=== PATIENT | female | born 1955 | race Caucasian/White ===

== ENCOUNTER 2016-03-08 11:52 | Observation (INO) | payer MEDICARE, MEDICAID ==
[2016-03-08] MEDS ORDERED: ASPIRIN 81 MG TABLET, CHEWABLE PO ONE (12:16)
--- NOTE | 2016-03-08 12:16 | ER Document Report ---
ED Medical Screen (RME) - General Stated Complaint: DIFFICULT BREATHING Mode of Arrival: Ambulatory Information source: Patient - For 1 week patient does smoke TRAVEL OUTSIDE OF THE [place] IN LAST 30 DAYS: No - Related Data Allergies/Adverse Reactions: Penicillins Allergy (Severe, Verified 12/31/13 02:36) throat closes morphine [Morphine] Adverse Reaction (Severe, Verified 12/31/13 02:36) migraine, n/v diphenhydramine HCl [From Benadryl] Adverse Reaction (Intermediate, Verified 09/06 02:36) bladder spasm Gchvzoa-Bvo-Rjx Reductase Inhibitor Adverse Reaction (Intermediate, Verified 09/06 02:36) muscle cramps Past Medical History Psychiatric Medical History: Reports: Hx Depression Past Surgical History: Reports: Hx Breast Surgery - lumpectomy, Hx Hysterectomy - Immunizations Hx Diphtheria, Pertussis, Tetanus Vaccination: Yes Physical Exam - Vital signs Vitals: Temp Pulse Resp BP Pulse Ox 98.1 F 103 H 16 139/72 H 94 03/08/16 12:10 03/08/16 12:10 03/08/16 12:10 03/08/16 12:10 03/08/16 12:10 Course - Vital Signs Vital signs: Temp Pulse Resp BP Pulse Ox 98.1 F 103 H 16 139/72 H 94 03/08/16 12:10 03/08/16 12:10 03/08/16 12:10 03/08/16 12:10 03/08/16 12:10
[2016-03-08 13:10] LABS: ABSOLUTE BASOPHILS # (AUTO) 0.1 10^3/uL (0.0-0.2); ABSOLUTE EOSINOPHILS # (AUTO) 0.1 10^3/uL (0.0-0.6); ABSOLUTE LYMPHOCYTES (AUTO) 1.3 10^3/uL (0.5-4.7); ABSOLUTE MONOCYTES (AUTO) 0.7 10^3/uL (0.1-1.4); ABSOLUTE NEUT (AUTO) 6.3 10^3/uL (1.7-8.2); BASOPHILS % (AUTO) 0.7 % (0-2); EOSINOPHILS % (AUTO) 1.5 % (0-6); HEMATOCRIT 43.1 % (36.0-47.0); HEMOGLOBIN 13.6 g/dL (12.0-15.5); HGB HCT DIFFERENCE -2.3; LYMPHOCYTES % (AUTO) 15.8 % (13-45); MEAN CORPUSCULAR HEMOGLOBIN 27.8 pg (27.0-33.4); MEAN CORPUSCULAR HGB CONC 31.6 g/dL (32.0-36.0); MEAN CORPUSCULAR VOLUME 88 fl (80-97); MONOCYTES % (AUTO) 7.7 % (3-13); RED BLOOD COUNT 4.89 10^6/uL (3.72-5.28); RED CELL DISTRIBUTION WIDTH 15.9 % (11.5-14.0); SEGMENTED NEUTROPHILS % (AUTO) 74.3 % (42-78); WHITE BLOOD COUNT 8.4 10^3/uL (4.0-10.5)
[2016-03-08] MEDS ORDERED: IPRATROPIUM/ALBUTEROL 0.5-2.5 MG/3 ML AMPUL NEB ONE (13:14)
[2016-03-08] MEDS ORDERED: CLONAZEPAM 1 MG TABLET PO ONE (13:15)
[2016-03-08] MEDS ORDERED: PREDNISONE 20 MG TABLET PO ONE (13:15)
--- NOTE | 2016-03-08 13:16 | ER Document Report ---
ED Respiratory Problem - General Chief Complaint: Breathing Difficulty Stated Complaint: DIFFICULT BREATHING Mode of Arrival: Ambulatory Information source: Patient Notes: Patient presents complaining of two-week history of cough. Patient states over the past 5 days her cough has worsened and she developed chest discomfort that she describes as a squeezing sensation around her chest. Patient states yesterday she did measure a fever of 102. Patient reports that occasionally she will gag after coughing. Patient states she's had yellow-green sputum with her cough. Patient denies any recent travel, or bedrest. TRAVEL OUTSIDE OF THE [place] IN LAST 30 DAYS: No - HPI Patient complains to provider of: Chest pain, Cough, Hurts to breath, Short of breath Onset: Other - 2 weeks, worse over the past 5 days Duration: Worse/persistent Initiating Event: URI Quality of pain: Other - Squeezing Context: Hx COPD, Smoker. denies: Recent cardiac event, Recent surgery Chest pain/discomfort: Tightness - Squeezing Cough: Productive Sputum amount: Small Sputum color: Green, Yellow Associated symptoms: Anxiety, Chest pain/discomfort, Cough, Difficulty breathing , Wheezing. denies: Sore Throat, Sweaty Similar symptoms previously: No Recently seen / treated by doctor: No - Related Data Allergies/Adverse Reactions: Penicillins Allergy (Severe, Verified 03/08/16 12:18) throat closes morphine [Morphine] Adverse Reaction (Severe, Verified 03/08/16 12:18) migraine, n/v diphenhydramine HCl [From Benadryl] Adverse Reaction (Intermediate, Verified 12:18) bladder spasm Nbqoqtz-Tvh-Mrk Reductase Inhibitor Adverse Reaction (Intermediate, Verified 12:18) muscle cramps Past Medical History - General Information source: Patient - For 1 week patient does smoke - Social History Smoking Status: Current Every Day Smoker Chew tobacco use (# tins/day): No Frequency of alcohol use: None Drug Abuse: None Occupation: none Lives with: Family Family History: Reviewed & Not Pertinent Patient has suicidal ideation: No Patient has homicidal ideation: No - Past Medical History Cardiac Medical History: Reports: Other - AAA Denies: Hx Hypertension Pulmonary Medical History: Reports: Hx COPD Renal/ Medical History: Denies: Hx Peritoneal Dialysis GI Medical History: Reports: Other - Gastroparesis Musculoskeltal Medical History: Reports Hx Arthritis - Rheumatoid arthritis Psychiatric Medical History: Reports: Hx Depression Past Surgical History: Reports: Hx Breast Surgery - lumpectomy, Hx Hysterectomy - Immunizations Hx Diphtheria, Pertussis, Tetanus Vaccination: Yes Review of Systems - Review of Systems Constitutional: Fever - 102 yesterday, Recent illness - Upper respiratory symptoms EENT: Nose congestion Cardiovascular: Chest pain Respiratory: Cough, Hurts to breathe, Short of breath, Sputum, Wheezing Gastrointestinal: No symptoms reported. denies: Nausea, Vomiting Genitourinary: No symptoms reported Female Genitourinary: No symptoms reported Musculoskeletal: No symptoms reported Skin: No symptoms reported Hematologic/Lymphatic: No symptoms reported Neurological/Psychological: No symptoms reported Physical Exam - Vital signs Vitals: Temp Pulse Resp BP Pulse Ox 98.1 F 103 H 16 139/72 H 94 03/08/16 12:10 03/08/16 12:10 03/08/16 12:10 03/08/16 12:10 03/08/16 12:10 - General General appearance: Appears well, Alert, Anxious In distress: None - HEENT Head: Normocephalic, Atraumatic Eyes: Normal Pupils: PERRL Nasal: Normal Mouth/Lips: Normal Mucous membranes: Normal Neck: Normal, Supple. No: Lymphadenopathy - Respiratory Respiratory status: No respiratory distress Chest status: Pain with cough, Pain with deep breathing Breath sounds: Productive cough, Wheezing Chest palpation: Tender - Cardiovascular Rhythm: Regular Heart sounds: S1 appreciated, S2 appreciated Murmur: No - Abdominal Inspection: Normal Distension: No distension Bowel sounds: Normal Tenderness: Nontender Organomegaly: No organomegaly - Back Back: Normal, Nontender. No: CVA tenderness - Extremities General upper extremity: Normal inspection, Normal strength General lower extremity: Normal inspection, Normal strength - Neurological Neuro grossly intact: Yes Cognition: Normal Orientation: AAOx4 [place] Coma Scale Eye Opening: Spontaneous [place]an Coma Scale Verbal: Oriented [place] Coma Scale Motor: Obeys Commands [place] Coma Scale Total: 15 - Psychological Associated symptoms: Normal affect, Anxious - Skin Skin Temperature: Warm Skin Moisture: Dry Skin Color: Normal Course - Re-evaluation Re-evalutation: 03/08/16 14:[address] Pate regarding patient presentation and exam findings. Reviewed EKG, discussed other diagnostic test results, recommends calling hospitalist for admission given patient's heart score. HEART score 5. 03/08/16 15:20 Repeat EKG performed and reviewed, ST depression seems modestly improved as compared to initial EKG performed today. 03/08/16 15:50 Consulted with hospitalist Davian Howard [employer] regarding patient's presentation, agreed to admit patient to telemetry floor as an observation. Patient will be assigned to Dr. Gonzalez services. - Vital Signs Vital signs: Temp Pulse Resp BP Pulse Ox 98.1 F 103 H 16 139/72 H 94 03/08/16 12:10 03/08/16 12:10 03/08/16 12:10 03/08/16 12:10 03/08/16 12:10 - Laboratory Result Diagrams: 03/08/16 12:30 03/08/16 12:30 Laboratory results interpreted by me: 03/08/16 03/08/16 12:30 12:30 MCHC 31.6 L RDW 15.9 H Potassium 3.4 L BUN 6 L Alkaline Phosphatase 135 H Creatine Kinase 186 H 03/08/16 17:20 Labs- Entire Visit 03/08/16 03/08/16 03/08/16 12:30 12:30 12:30 WBC 8.4 RBC 4.89 Hgb 13.6 Hct 43.1 MCV 88 MCH 27.8 MCHC 31.6 L RDW 15.9 H Plt Count 220 Seg Neutrophils % 74.3 Lymphocytes % 15.8 Monocytes % 7.7 Eosinophils % 1.5 Basophils % 0.7 Absolute Neutrophils 6.3 Absolute Lymphocytes 1.3 Absolute Monocytes 0.7 Absolute Eosinophils 0.1 Absolute Basophils 0.1 Sodium 143.3 Potassium 3.4 L Chloride 104 Carbon Dioxide 25 Anion Gap 14 BUN 6 L Creatinine 0.76 Est GFR ( Amer) > 60 Est GFR (Non-Af Amer) > 60 Glucose 96 Calcium 9.2 Total Bilirubin 0.6 Direct Bilirubin 0.0 AST 22 ALT 23 Alkaline Phosphatase 135 H Creatine Kinase 186 H CK-MB (CK-2) 0.90 Troponin I < 0.012 Total Protein 6.8 Albumin 3.8 Lipase 03/08/16 03/08/16 12:30 15:30 WBC RBC Hgb Hct MCV MCH MCHC RDW Plt Count Seg Neutrophils % Lymphocytes % Monocytes % Eosinophils % Basophils % Absolute Neutrophils Absolute Lymphocytes Absolute Monocytes Absolute Eosinophils Absolute Basophils Sodium Potassium Chloride Carbon Dioxide Anion Gap BUN Creatinine Est GFR ( Amer) Est GFR (Non-Af Amer) Glucose Calcium Total Bilirubin Direct Bilirubin AST ALT Alkaline Phosphatase Creatine Kinase CK-MB (CK-2) Troponin I < 0.012 Total Protein Albumin Lipase 47.9 - Diagnostic Test Radiology reviewed: Reports reviewed - EKG Interpretation by Me EKG shows normal: Sinus rhythm Rate: Tachycardia When compared to previous EKG there are: Changes noted, Other - ST depression in anterior lateral leads Discharge - Discharge Clinical Impression: Tobacco use disorder, Hypokalemia, COPD exacerbation Chest pain Qualifiers: Chest pain type: unspecified Qualified Code(s): R07.9 - Chest pain, unspecified Condition: Stable Disposition: ADMITTED OBSERVATION Admitting Provider: Hospitalist Unit Admitted: Telemetry
[2016-03-08 13:27] LABS: ALANINE AMINOTRANSFERASE 23 U/L (9-52); ALBUMIN 3.8 g/dL (3.5-5.0); ALKALINE PHOSPHATASE 135 U/L (38-126); ANION GAP 14 (5-19); ASPARTATE AMINO TRANSFERASE 22 U/L (14-36); BILIRUBIN,TOTAL 0.6 mg/dL (0.2-1.3); BLOOD UREA NITROGEN 6 mg/dL (7-20); CALCIUM 9.2 mg/dL (8.4-10.2); CARBON DIOXIDE 25 mmol/L (22-30); CHLORIDE 104 mmol/L (98-107); CREATINE KINASE 186 U/L (30-135); CREATININE RESULT 0.76 mg/dL (0.52-1.25); GLUCOSE 96 mg/dL (75-110); POTASSIUM 3.4 mmol/L (3.6-5.0); SODIUM 143.3 mmol/L (137-145); TOTAL PROTEIN 6.8 g/dL (6.3-8.2)
[2016-03-08 13:41] LABS: TROPONIN I < 0.012 ng/mL
[2016-03-08] MEDS ORDERED: NICOTINE 21 MG/24 HR PATCH.TD24 TD ONE (14:38)
[2016-03-08] MEDS ORDERED: POTASSIUM CHLORIDE 10 MEQ TABLET.SA PO ONE (14:48)
--- NOTE | 2016-03-08 15:00 | EKG REPORT ---
SEVERITY:- ABNORMAL ECG - SINUS RHYTHM ST DEPRESSION, CONSIDER ISCHEMIA, ANT-LAT LDS : Confirmed by: Angelia Slater 08-Mar-2016 14:59:01
[2016-03-08] MEDS ORDERED: HYDROCODONE/ACETAMINOPHEN 5-325 MG TABLET PO ONE (15:05)
[2016-03-08] MEDS ORDERED: ALBUTEROL SULFATE 0.083% NEB 2.5 MG/3 ML AMPUL NEB ONE (15:05)
[2016-03-08] MEDS ORDERED: LEVALBUTEROL HCL NEB 0.63 MG/3 ML AMPUL NEB PRN (15:50)
--- NOTE | 2016-03-08 16:48 | EKG REPORT ---
SEVERITY:- OTHERWISE NORMAL ECG - SINUS TACHYCARDIA MINIMAL ST DEPRESSION, ANTEROLATERAL LEADS : Confirmed by: Barbie Medellin MD 08-Mar-2016 16:47:52
[2016-03-08] MEDS: LEVALBUTEROL HCL NEB 1.25 MG/3 ML AMPUL NEB SCH ×2 (16:57→23:54)
--- NOTE | 2016-03-08 17:31 | PDOC H&P ---
History of Present Illness Admission Date/PCP: 03/08/16 16:32 Dr. Hung Patient complains of: Congestion History of Present Illness: YAZAN MCCOY is a 60 year old female with a past medical history of tobacco dependency and fibromyalgia. The patient presented to the emergency department with a two-week history of bronchitis type symptoms. The patient been seen and evaluated by her primary care provider Dr. Hung had been started on Ceftin and Zithromax. The patient presented with chest heaviness and wheezing. Given the patient's chest pain and heaviness the patient was referred to the hospitalist for observation and management. The patient also states that she had an avulsion fracture of her left ankle 2 weeks ago. The patient was seen and was placed in a boot. The patient was told that this should continue to heal however the patient states that her pain is much worse today than it was when she had the fracture. Past Medical History Pulmonary Medical History: Reports: Bronchitis, Chronic Obstructive Pulmonary Disease (COPD) Musculoskeltal Medical History: Reports: Fibromyalgia Psychiatric Medical History: Reports: Depression, Tobacco Dependency Past Surgical History Past Surgical History: Reports: Hysterectomy Social History Information Source: Patient Occupation: Disabled Lives with: Alone Smoking Status: Current Every Day Smoker Cigarettes Packs Per Day: 1 Number of Years Smokin Last Time Smoked: today Frequency of Alcohol Use: None Hx Recreational Drug Use: No Drugs: None Hx Prescription Drug Abuse: No - Advance Directive Resuscitation Status: Full Code Surrogate healthcare decision maker:: Her daughter Joanie Family History Family History: Reviewed & Not Pertinent Parental Family History Reviewed: Yes - mother: from AAA, father: of mesothelioma Children Family History Reviewed: Yes - 1 daughter that committed suicide. 2 daughters Sibling(s) Family History Reviewed.: Yes - 1 brother who committed suicide Medication/Allergy Home Medications: Cetirizine HCl [Zyrtec] 10 mg PO DAILY 12/30/13 Aspirin [Ecotrin 81 mg EC Tablet] 81 mg PO DAILY #30 tabec 01/01/14 Azithromycin [Zithromax 250 mg Tablet] 250 mg PO DAILY #2 tablet 01/01/14 Cefuroxime Axetil [Ceftin 500 mg Tablet] 500 mg PO Q12 #7 tablet 01/01/14 Clonazepam [Klonopin 1 mg Tablet] 1 mg PO TID PRN #20 tablet 01/01/14 Duloxetine HCl [Cymbalta] 60 mg PO DAILY #30 capsule. 01/01/14 Hydrocodone Bit/Acetaminophen [Hydrocodon-Acetaminophn 10-325] 1 each PO QID PRN #20 tablet 01/01/14 Ketorolac Tromethamine 10 mg PO BIDP #10 tablet 01/01/14 [place]-3 Fatty Acids/Fish Oil [Fish Oil 1,000 Mg Capsule] 1 each PO BID #60 capsule 01/01/14 Triamterene/Hydrochlorothiazid [Triamterene-Hctz 37.5-25 mg Tb] 1 tab PO DAILY # 30 tablet 01/01/14 Zolpidem Tartrate [Ambien] 10 mg PO QHS PRN #20 tablet 01/01/14 Allergies/Adverse Reactions: Penicillins Allergy (Severe, Verified 03/08/16 12:18) throat closes morphine [Morphine] Adverse Reaction (Severe, Verified 03/08/16 12:18) migraine, n/v diphenhydramine HCl [From Benadryl] Adverse Reaction (Intermediate, Verified 12:18) bladder spasm Gainbyp-Aod-Ytm Reductase Inhibitor Adverse Reaction (Intermediate, Verified 12:18) muscle cramps Review of Systems Constitutional: ABSENT: chills, fever(s), headache(s), weight gain, weight loss Eyes: ABSENT: visual disturbances Ears: ABSENT: hearing changes Cardiovascular: PRESENT: chest pain. ABSENT: dyspnea on exertion, edema, orthropnea, palpitations Respiratory: PRESENT: cough, dyspnea, sputum. ABSENT: hemoptysis Gastrointestinal: ABSENT: abdominal pain, constipation, diarrhea, hematemesis, hematochezia, nausea, vomiting Genitourinary: ABSENT: dysuria, hematuria Musculoskeletal: ABSENT: joint swelling Integumentary: ABSENT: rash, wounds Neurological: ABSENT: abnormal gait, abnormal speech, confusion, dizziness, focal weakness, syncope Psychiatric: PRESENT: depression. ABSENT: anxiety, homidical ideation, suicidal ideation Endocrine: ABSENT: cold intolerance, heat intolerance, polydipsia, polyuria Hematologic/Lymphatic: ABSENT: easy bleeding, easy bruising Physical Exam Vital Signs: Temp Pulse Resp BP Pulse Ox 98.1 F 103 H 16 139/72 H 94 03/08/16 12:10 03/08/16 12:10 03/08/16 12:10 03/08/16 12:10 03/08/16 12:10 General appearance: PRESENT: no acute distress, well-developed, well-nourished Head exam: PRESENT: atraumatic, normocephalic Eye exam: PRESENT: conjunctiva pink, EOMI, PERRLA. ABSENT: scleral icterus Ear exam: PRESENT: normal external ear exam Mouth exam: PRESENT: moist, tongue midline Neck exam: ABSENT: carotid bruit, JVD, lymphadenopathy, thyromegaly Respiratory exam: PRESENT: decreased breath sounds, symmetrical, unlabored, wheezes. ABSENT: rales, rhonchi, tachypnea Cardiovascular exam: PRESENT: RRR. ABSENT: diastolic murmur, rubs, systolic murmur Pulses: PRESENT: normal dorsalis pedis pul Vascular exam: PRESENT: normal capillary refill GI/Abdominal exam: PRESENT: normal bowel sounds, soft. ABSENT: distended, guarding, mass, organolmegaly, rebound, tenderness Rectal exam: PRESENT: deferred Extremities exam: PRESENT: full ROM, other - Hard cast in place on left leg. ABSENT: calf tenderness, clubbing, pedal edema Neurological exam: PRESENT: alert, awake, oriented to person, oriented to place , oriented to time, oriented to situation, CN II-XII grossly intact. ABSENT: motor sensory deficit Psychiatric exam: PRESENT: depressed, unusual affect. ABSENT: homicidal ideation, suicidal ideation Skin exam: PRESENT: dry, intact, warm. ABSENT: cyanosis, rash Results Laboratory Results: Labs- Last Values WBC 8.4 10^3/uL (4.0-10.5) 03/08/16 12:30 RBC 4.89 10^6/uL (3.72-5.28) 03/08/16 12:30 Hgb 13.6 g/dL (12.0-15.5) 03/08/16 12:30 Hct 43.1 % (36.0-47.0) 03/08/16 12:30 MCV 88 fl (80-97) 03/08/16 12:30 MCH 27.8 pg (27.0-33.4) 03/08/16 12:30 MCHC 31.6 g/dL (32.0-36.0) L 03/08/16 12:30 RDW 15.9 % (11.5-14.0) H 03/08/16 12:30 Plt Count 220 10^3/uL (150-450) 03/08/16 12:30 Seg Neutrophils % 74.3 % (42-78) 03/08/16 12:30 Lymphocytes % 15.8 % (13-45) 03/08/16 12:30 Monocytes % 7.7 % (3-13) 03/08/16 12:30 Eosinophils % 1.5 % (0-6) 03/08/16 12:30 Basophils % 0.7 % (0-2) 03/08/16 12:30 Absolute Neutrophils 6.3 10^3/uL (1.7-8.2) 03/08/16 12:30 Absolute Lymphocytes 1.3 10^3/uL (0.5-4.7) 03/08/16 12:30 Absolute Monocytes 0.7 10^3/uL (0.1-1.4) 03/08/16 12:30 Absolute Eosinophils 0.1 10^3/uL (0.0-0.6) 03/08/16 12:30 Absolute Basophils 0.1 10^3/uL (0.0-0.2) 03/08/16 12:30 Sodium 143.3 mmol/L (137-145) 03/08/16 12:30 Potassium 3.4 mmol/L (3.6-5.0) L 03/08/16 12:30 Chloride 104 mmol/L (98-107) 03/08/16 12:30 Carbon Dioxide 25 mmol/L (22-30) 03/08/16 12:30 Anion Gap 14 (5-19) 03/08/16 12:30 BUN 6 mg/dL (7-20) L 03/08/16 12:30 Creatinine 0.76 mg/dL (0.52-1.25) 03/08/16 12:30 Est GFR ( Amer) > 60 (>60) 03/08/16 12:30 Est GFR (Non-Af Amer) > 60 (>60) 03/08/16 12:30 Glucose 96 mg/dL (75-110) 03/08/16 12:30 Calcium 9.2 mg/dL (8.4-10.2) 03/08/16 12:30 Total Bilirubin 0.6 mg/dL (0.2-1.3) 03/08/16 12:30 Direct Bilirubin 0.0 mg/dL (0.0-0.3) 03/08/16 12:30 AST 22 U/L (14-36) 03/08/16 12:30 ALT 23 U/L (9-52) 03/08/16 12:30 Alkaline Phosphatase 135 U/L (38-126) H 03/08/16 12:30 Creatine Kinase 186 U/L (30-135) H 03/08/16 12:30 CK-MB (CK-2) 0.90 ng/mL (<4.55) 03/08/16 12:30 Troponin I < 0.012 ng/mL 03/08/16 15:30 Total Protein 6.8 g/dL (6.3-8.2) 03/08/16 12:30 Albumin 3.8 g/dL (3.5-5.0) 03/08/16 12:30 Lipase 47.9 U/L (23-300) 03/08/16 12:30 Impressions: Chest X-Ray 03/08/16 12:16 IMPRESSION: Obstructive lung disease with some superimposed pulmonary fibrosis. No acute infiltrates Assessment & Plan - Diagnosis (1) Chest pain Qualifiers: Chest pain type: unspecified Qualified Code(s): R07.9 - Chest pain, unspecified Is this a current diagnosis for this admission?: YesPlan: Will observe the patient continues telemetry unit, obtain serial cardiac enzymes , repeat EKG, and obtain lipid panel in the a.m. . (2) Acute asthmatic bronchitis Is this a current diagnosis for this admission?: YesPlan: Patient on doxycycline given that she failed outpatient management with steroids. (3) COPD exacerbation Is this a current diagnosis for this admission?: Yes (4) Hypokalemia Is this a current diagnosis for this admission?: Yes (5) Precordial chest pain Is this a current diagnosis for this admission?: Yes (6) Family history of ischemic heart disease Is this a current diagnosis for this admission?: Yes (7) Fibromyalgia Is this a current diagnosis for this admission?: Yes (8) Tobacco use disorder Is this a current diagnosis for this admission?: Yes (9) Avulsion fracture of ankle Qualifiers: Encounter type: subsequent encounter Fracture type: closed Laterality: left Fracture healing: with delayed healing Qualified Code(s): S82.892G - Other fracture of left lower leg, subsequent encounter for closed fracture with delayed healing Is this a current diagnosis for this admission?: YesPlan: The patient admits to an increase in pain in the area. Will consult social orthopedics for input. - Time Time Spent: 50 to 70 Minutes Medications reviewed and adjusted accordingly: Yes Anticipated discharge: Home Within: within 24 hours Disposition: The patient is a full code. Pending patient's symptomatology and diagnostic findings will reevaluate in the a.m.
[2016-03-08] MEDS: DOXYCYCLINE HYCLATE 100 MG TABLET PO SCH (23:29)
[2016-03-09] MEDS: OXYCODONE HCL IR 5 MG TABLET PO PRN ×4 (01:42→22:12)
[2016-03-09] MEDS: LORAZEPAM 0.5 MG TABLET PO PRN ×2 (01:43→11:42)
[2016-03-09] MEDS: LEVALBUTEROL HCL NEB 1.25 MG/3 ML AMPUL NEB SCH ×2 (08:06→16:08)
[2016-03-09] MEDS: NICOTINE 21 MG/24 HR PATCH.TD24 TD PRN (08:42)
[2016-03-09] MEDS: ACETAMINOPHEN 325 MG TABLET PO PRN ×2 (08:43→17:52)
[2016-03-09] MEDS: ENOXAPARIN SODIUM INJ 40 MG/0.4 ML DISP.SYRIN SUBCUT SCH (08:44)
--- NOTE | 2016-03-09 09:25 | EKG REPORT ---
SEVERITY:- NORMAL ECG - SINUS RHYTHM : Confirmed by: Barbie Medellin MD 09-Mar-2016 09:24:06
[2016-03-09] MEDS ORDERED: ASPIRIN 81 MG TABLET, CHEWABLE PO SCH (10:00)
[2016-03-09] MEDS ORDERED: PREDNISONE 20 MG TABLET PO SCH (10:00)
[2016-03-09 10:09] LABS: VENOUS BLOOD BASE EXCESS 2.3 mmol/L; VENOUS BLOOD HCO3 27.9 mmol/L (20-32); VENOUS BLOOD PCO2 47.1 mmHg (35-63); VENOUS BLOOD PH 7.39 (7.30-7.42)
[2016-03-09] MEDS: DOXYCYCLINE HYCLATE 100 MG TABLET PO SCH ×2 (11:38→21:45)
--- NOTE | 2016-03-09 14:04 | PDOC CONSULTATION ---
History of Present Illness Admission Date/PCP: 03/08/16 15:50 Patient complains of: Left ankle pain History of Present Illness: YAZAN MCCOY is a 60 year old female with a past medical history of tobacco dependency and fibromyalgia. The patient presented to the emergency department with a two-week history of bronchitis type symptoms. Orthopedics consult to evaluate her left ankle. Patient states 2 weeks ago she was traveling to [place] when she got out of her car inadvertently twisted falling backward onto her left ankle. Patient was seen and no burn where radiographs demonstrate an avulsion fracture she was placed in a stirrup brace which caused her increased discomfort ultimately she was placed in a pneumatic walking boot which has provided her some stability. Her pain has improved since initial time of injury but continues to have discomfort with attempted weightbearing. Denies numbness or tingling. Pain 4/5. Past Medical History Cardiac Medical History: Reports: Other - AAA Denies: Hypertension Pulmonary Medical History: Reports: Bronchitis, Chronic Obstructive Pulmonary Disease (COPD) GI Medical History: Reports: Other - Gastroparesis Musculoskeltal Medical History: Reports: Arthritis - Rheumatoid arthritis, Fibromyalgia Psychiatric Medical History: Reports: Depression, Tobacco Dependency Past Surgical History Past Surgical History: Reports: Hysterectomy Social History Lives with: Alone Smoking Status: Current Every Day Smoker Cigarettes Packs Per Day: 1 Number of Years Smokin Last Time Smoked: today Frequency of Alcohol Use: None Hx Recreational Drug Use: No Drugs: None Hx Prescription Drug Abuse: No - Advance Directive Resuscitation Status: Full Code Family History Family History: Reviewed & Not Pertinent Parental Family History Reviewed: No Children Family History Reviewed: No Sibling(s) Family History Reviewed.: No Medication/Allergy Home Medications: Cetirizine HCl [Zyrtec] 10 mg PO DAILY 12/30/13 Aspirin [Ecotrin 81 mg EC Tablet] 81 mg PO DAILY #30 tabec 01/01/14 Azithromycin [Zithromax 250 mg Tablet] 250 mg PO DAILY #2 tablet 01/01/14 Cefuroxime Axetil [Ceftin 500 mg Tablet] 500 mg PO Q12 #7 tablet 01/01/14 Clonazepam [Klonopin 1 mg Tablet] 1 mg PO TID PRN #20 tablet 01/01/14 Duloxetine HCl [Cymbalta] 60 mg PO DAILY #30 capsule. 01/01/14 Hydrocodone Bit/Acetaminophen [Hydrocodon-Acetaminophn 10-325] 1 each PO QID PRN #20 tablet 01/01/14 Ketorolac Tromethamine 10 mg PO BIDP #10 tablet 01/01/14 [place]-3 Fatty Acids/Fish Oil [Fish Oil 1,000 Mg Capsule] 1 each PO BID #60 capsule 01/01/14 Triamterene/Hydrochlorothiazid [Triamterene-Hctz 37.5-25 mg Tb] 1 tab PO DAILY # 30 tablet 01/01/14 Zolpidem Tartrate [Ambien] 10 mg PO QHS PRN #20 tablet 01/01/14 Allergies/Adverse Reactions: Penicillins Allergy (Severe, Verified 03/08/16 12:18) throat closes morphine [Morphine] Adverse Reaction (Severe, Verified 03/08/16 12:18) migraine, n/v diphenhydramine HCl [From Benadryl] Adverse Reaction (Intermediate, Verified 12:18) bladder spasm [id number] Reductase Inhibitor Adverse Reaction (Intermediate, Verified 12:18) muscle cramps Review of Systems Constitutional: ABSENT: chills, fever(s), headache(s), weight gain, weight loss Eyes: ABSENT: visual disturbances Ears: ABSENT: hearing changes Cardiovascular: ABSENT: chest pain, dyspnea on exertion, edema, orthropnea, palpitations Respiratory: PRESENT: cough, dyspnea Gastrointestinal: ABSENT: abdominal pain, constipation, diarrhea, hematemesis, hematochezia, nausea, vomiting Genitourinary: ABSENT: dysuria, hematuria Musculoskeletal: PRESENT: as per HPI Integumentary: ABSENT: rash, wounds Neurological: ABSENT: abnormal gait, abnormal speech, confusion, dizziness, focal weakness, syncope Psychiatric: ABSENT: anxiety, depression, homidical ideation, suicidal ideation Endocrine: ABSENT: cold intolerance, heat intolerance, menstrual abnormalities, polydipsia, polyuria Hematologic/Lymphatic: ABSENT: easy bleeding, easy bruising, lymphadenopathy Physical Exam Vital Signs: Temp Pulse Resp BP Pulse Ox 98.0 F 99 20 117/63 91 L 03/09/16 08:00 03/09/16 09:25 03/09/16 08:06 03/09/16 08:00 03/09/16 08:00 Intake & Output 03/08/16 03/09/16 03/10/16 06:59 06:59 06:59 Intake Total 600 850 Balance 600 850 Weight 74 kg General appearance: PRESENT: no acute distress, well-developed, well-nourished Head exam: PRESENT: atraumatic, normocephalic Eye exam: PRESENT: conjunctiva pink, EOMI, PERRLA. ABSENT: scleral icterus Ear exam: PRESENT: normal external ear exam Mouth exam: PRESENT: moist, tongue midline Neck exam: PRESENT: full ROM. ABSENT: carotid bruit, JVD, lymphadenopathy, thyromegaly Respiratory exam: PRESENT: unlabored Cardiovascular exam: PRESENT: RRR. ABSENT: diastolic murmur, rubs, systolic murmur Pulses: PRESENT: normal dorsalis pedis pul, +2 pedal pulses bilateral Vascular exam: PRESENT: normal capillary refill GI/Abdominal exam: PRESENT: normal bowel sounds, soft. ABSENT: distended, guarding, mass, organolmegaly, rebound, tenderness Rectal exam: PRESENT: deferred Musculoskeletal exam: PRESENT: other - Left ankle/foot: Maximal point tenderness along the ATFL and distal tip of the lateral malleolus. No tenderness along the proximal portion of the lateral malleolus or medial malleolus. Mild swelling laterally. Mild tenderness along the proximal fifth metatarsal. Intact plantar flexion/dorsiflexion. No sensory deficits. No calf tenderness. Neurological exam: PRESENT: alert, awake, oriented to person, oriented to place , oriented to time, oriented to situation, CN II-XII grossly intact. ABSENT: motor sensory deficit Psychiatric exam: PRESENT: appropriate affect, normal mood. ABSENT: homicidal ideation, suicidal ideation Skin exam: PRESENT: dry, intact, warm. ABSENT: cyanosis, rash Results Laboratory Results: 03/09/16 09:49 VBG pH 7.39 VBG pCO2 47.1 VBG HCO3 27.9 VBG Base Excess 2.3 03/08/16 22:09 Troponin I < 0.012 Impressions: Chest/Abdomen CTA 03/08/16 00:00 IMPRESSION: UNREMARKABLE CTA OF THE CHEST WITHOUT PULMONARY EMBOLUS IDENTIFIED. STABLE CHRONIC LUNG CHANGE ABOVE. Chest X-Ray 03/08/16 12:16 IMPRESSION: Obstructive lung disease with some superimposed pulmonary fibrosis. No acute infiltrates Ankle X-Ray 03/09/16 00:00 IMPRESSION: Lateral soft tissue swelling with ankle joint effusion. Small bony fragments along the inferior tip of the lateral malleolus, likely chronic. Superimposed acute injury could not be excluded Status: Image reviewed by me - Have reviewed patient's radiographs which demonstrate questionable old avulsion fracture along the distal fibula likely chronic in nature there is some mild lateral soft tissue swelling. Close examination of the metatarsals demonstrate no evidence of Lan fracture or proximal metatarsal fracture. Assessment & Plan - Diagnosis (1) Avulsion fracture of ankle Qualifiers: Encounter type: subsequent encounter Fracture type: closed Laterality: left Fracture healing: with routine healing Qualified Code(s): S82.892D - Other fracture of left lower leg, subsequent encounter for closed fracture with routine healing Is this a current diagnosis for this admission?: YesPlan: I have reviewed patient's radiographs which them straight small avulsion fracture I was concerned about the possibility of a metatarsal fracture proximally at the ankle radiographs demonstrate no evidence of such fracture and thus I do not feel dedicated foot films are required. At this point patient will continue to progress weightbearing as tolerated in the amount of walking boot. She may follow up as an outpatient.
[2016-03-09] MEDS ORDERED: ASPIRIN 81 MG TABLET, ENT COATED PO ONE (14:30)
[2016-03-09] MEDS ORDERED: TRIAMTERENE/HYDROCHLOROTHIAZIDE 37.5-25 MG TABLET PO ONE (14:30)
[2016-03-09] MEDS ORDERED: CETIRIZINE 10 MG TABLET PO ONE (14:30)
[2016-03-09] MEDS ORDERED: DULOXETINE HCL 30 MG CAPSULE.DR PO ONE (14:30)
--- NOTE | 2016-03-09 15:06 | PDOC PROGRESS REPORT ---
Subjective Progress Note for:: 03/09/16 Subjective:: The patient is currently lying in bed. Patient has been seen by orthopedics and states the patient can take her off the midline in bed. The patient states that she does feel better than yesterday however she still feels dyspnea with exertion. The patient was tearful on 3 separate episodes during my encounter. The patient states that she has had significant depression and lots of crying spells. The patient has bilateral chronic depression and anxiety for a number of years. The patient does have a strong family history of suicide. The patient has asked for a psych evaluation. At this time the patient denies any suicidal or homicidal ideations. No intent to self-harm only overwhelmed. The patient denies any nausea, vomiting, diarrhea, dizziness, chest pain, heart palpitations, fevers, or chills. The patient has remained afebrile. Blood pressures have been in a good range. The patient voices no other concerns at this time. Review of systems: The rest of the review of systems is negative. Physical Exam Vital Signs: Temp Pulse Resp BP Pulse Ox 98.0 F 99 20 117/63 91 L 03/09/16 08:00 03/09/16 09:25 03/09/16 08:06 03/09/16 08:00 03/09/16 08:00 Intake & Output 03/07/16 03/08/16 03/09/16 23:59 23:59 23:59 Intake Total 1450 Balance 1450 Weight 74.1 kg 74 kg General appearance: PRESENT: no acute distress, well-developed, well-nourished Head exam: PRESENT: atraumatic, normocephalic Eye exam: PRESENT: conjunctiva pink, EOMI, PERRLA. ABSENT: scleral icterus Ear exam: PRESENT: normal external ear exam Mouth exam: PRESENT: moist, tongue midline Neck exam: ABSENT: carotid bruit, JVD, lymphadenopathy, thyromegaly Respiratory exam: PRESENT: decreased breath sounds, symmetrical, unlabored, wheezes. ABSENT: rales, rhonchi, tachypnea Cardiovascular exam: PRESENT: RRR. ABSENT: diastolic murmur, rubs, systolic murmur Pulses: PRESENT: normal dorsalis pedis pul Vascular exam: PRESENT: normal capillary refill GI/Abdominal exam: PRESENT: normal bowel sounds, soft. ABSENT: distended, guarding, mass, organolmegaly, rebound, tenderness Rectal exam: PRESENT: deferred Extremities exam: PRESENT: full ROM, other - Hard cast in place on left leg. ABSENT: calf tenderness, clubbing, pedal edema Neurological exam: PRESENT: alert, awake, oriented to person, oriented to place , oriented to time, oriented to situation, CN II-XII grossly intact. ABSENT: motor sensory deficit Psychiatric exam: PRESENT: depressed, unusual affect. ABSENT: homicidal ideation, suicidal ideation Skin exam: PRESENT: dry, intact, warm. ABSENT: cyanosis, rash Results Laboratory Results: 03/09/16 09:49 VBG pH 7.39 VBG pCO2 47.1 VBG HCO3 27.9 VBG Base Excess 2.3 03/08/16 22:09 Troponin I < 0.012 Impressions: Chest/Abdomen CTA 03/08/16 00:00 IMPRESSION: UNREMARKABLE CTA OF THE CHEST WITHOUT PULMONARY EMBOLUS IDENTIFIED. STABLE CHRONIC LUNG CHANGE ABOVE. Chest X-Ray 03/08/16 12:16 IMPRESSION: Obstructive lung disease with some superimposed pulmonary fibrosis. No acute infiltrates Ankle X-Ray 03/09/16 00:00 IMPRESSION: Lateral soft tissue swelling with ankle joint effusion. Small bony fragments along the inferior tip of the lateral malleolus, likely chronic. Superimposed acute injury could not be excluded Assessment & Plan - Diagnosis (1) Chest pain Qualifiers: Chest pain type: unspecified Qualified Code(s): R07.9 - Chest pain, unspecified Is this a current diagnosis for this admission?: YesPlan: Will observe the patient continues telemetry unit, obtain serial cardiac enzymes , repeat EKG, and obtain lipid panel in the a.m. (2) Acute asthmatic bronchitis Is this a current diagnosis for this admission?: YesPlan: Patient on doxycycline given that she failed outpatient management with steroids. (3) COPD exacerbation Is this a current diagnosis for this admission?: Yes (4) Hypokalemia Is this a current diagnosis for this admission?: YesPlan: This was replaced (5) Precordial chest pain Is this a current diagnosis for this admission?: Yes (6) Family history of ischemic heart disease Is this a current diagnosis for this admission?: No (7) Fibromyalgia Is this a current diagnosis for this admission?: YesPlan: Will continue home medications. (8) Left ankle injury Qualifiers: Encounter type: subsequent encounter Qualified Code(s): S99.912D - Unspecified injury of left ankle, subsequent encounter Is this a current diagnosis for this admission?: YesPlan: The patient has been seen by orthopedics. No need for intervention at this time. (9) Tobacco use disorder Is this a current diagnosis for this admission?: YesPlan: The patient has asked for smoking cessation education. Number was provided for the foot smoking helpline. Given the patient's anxieties, depression, mood lability do not feel comfortable starting the patient on Wellbutrin nor Chantix. The patient is currently wearing a tobacco patch and this is sufficient for now. - Time Time Spent with patient: on this visit including assessment, plan, physical examination, history collaboration, and patient education is 25 minutes. Time Spent with patient: 25-34 minutes Medications reviewed and adjusted accordingly: Yes Anticipated discharge: Home Within: within 24 hours Disposition: The patient is a full code. Pending patient's symptomatology and diagnostic findings will reevaluate in the a.m.
[2016-03-09] MEDS: CETIRIZINE 10 MG TABLET PO SCH (15:15)
[2016-03-09] MEDS: OMEGA-3 ACID ETHYL ESTERS 1 GM CAPSULE PO SCH (17:49)
[2016-03-09] MEDS: CLONAZEPAM 1 MG TABLET PO PRN (17:59)
[2016-03-09] MEDS ORDERED: (PENDING PHARMACY ID) (Omega-3 Fatty Acids/Fish Oil [Fish Oil 1,000 Mg Capsule] 1 EACH) PO SCH (18:00)
[2016-03-09] MEDS: KETOROLAC TROMETHAMINE 10 MG TABLET PO PRN (20:18)
[2016-03-10] MEDS: LEVALBUTEROL HCL NEB 1.25 MG/3 ML AMPUL NEB SCH ×3 (00:51→15:50)
[2016-03-10] MEDS: CLONAZEPAM 1 MG TABLET PO PRN (03:01)
[2016-03-10] MEDS: ENOXAPARIN SODIUM INJ 40 MG/0.4 ML DISP.SYRIN SUBCUT SCH (07:21)
[2016-03-10] MEDS: KETOROLAC TROMETHAMINE 10 MG TABLET PO PRN ×2 (07:23→17:44)
[2016-03-10] MEDS: NICOTINE 21 MG/24 HR PATCH.TD24 TD PRN (08:46)
[2016-03-10] MEDS: OXYCODONE HCL IR 5 MG TABLET PO PRN (08:46)
[2016-03-10] MEDS: CETIRIZINE 10 MG TABLET PO SCH (09:17)
[2016-03-10] MEDS: DOXYCYCLINE HYCLATE 100 MG TABLET PO SCH (09:19)
[2016-03-10] MEDS: OMEGA-3 ACID ETHYL ESTERS 1 GM CAPSULE PO SCH ×2 (09:19→17:44)
[2016-03-10] MEDS ORDERED: ASPIRIN 81 MG TABLET, ENT COATED PO SCH (10:00)
[2016-03-10] MEDS ORDERED: VENLAFAXINE HCL 75 MG CAP.SR.24H PO SCH (10:00)
[2016-03-10] MEDS ORDERED: VENLAFAXINE HCL 300 MG PO SCH (10:00)
[2016-03-10] MEDS ORDERED: TRIAMTERENE/HYDROCHLOROTHIAZIDE 37.5-25 MG TABLET PO SCH (10:00)
[2016-03-10] MEDS ORDERED: (PENDING PHARMACY ID) (Brexpiprazole [Rexulti] 3 MG) PO SCH (10:00)
[2016-03-10] MEDS ORDERED: DULOXETINE HCL 30 MG CAPSULE.DR PO SCH (10:00)
[2016-03-10] MEDS ORDERED: PREDNISONE 20 MG TABLET PO SCH (10:00)
[2016-03-10] MEDS ORDERED: METOPROLOL TARTRATE 50 MG TABLET PO SCH (10:00)
[2016-03-10] MEDS: GABAPENTIN 100 MG CAPSULE PO SCH ×2 (12:13→17:44)
[2016-03-10] MEDS: ACETAMINOPHEN 325 MG TABLET PO PRN (13:03)
--- NOTE | 2016-03-10 16:16 | PDOC PROGRESS REPORT ---
Subjective Subjective:: 60-year-old female presented with left ankle pain after fall. Patient states she has been ambulating without the walking boot with minimal discomfort. Only has pain with certain motions such as twisting. Denies numbness or tingling. Pain 6/10. Physical Exam Vital Signs: Temp Pulse Resp BP Pulse Ox 97.7 F 66 17 117/70 98 03/10/16 11:26 03/10/16 15:50 03/10/16 15:50 03/10/16 11:26 03/10/16 11:26 Intake & Output 03/09/16 03/10/16 03/11/16 06:59 06:59 06:59 Intake Total 600 1750 Balance 600 1750 Weight 74 kg 75.7 kg General appearance: PRESENT: no acute distress, cooperative Head exam: PRESENT: atraumatic, normocephalic Eye exam: PRESENT: EOMI, PERRLA Mouth exam: PRESENT: moist Neck exam: PRESENT: full ROM Respiratory exam: PRESENT: symmetrical, unlabored Pulses: PRESENT: +2 pedal pulses bilateral Vascular exam: PRESENT: normal capillary refill Musculoskeletal exam: PRESENT: other - Left ankle: Tenderness along the tip of the distal fibula. Mild tenderness along the ATFL. Tenderness along the midfoot. Mild swelling no ecchymosis. Intact plantar flexion/dorsiflexion. No sensory deficits. Neurological exam: PRESENT: alert, awake, oriented to person, oriented to place , oriented to time, oriented to situation, CN II-XII grossly intact Results Laboratory Results: 03/08/16 22:09 Troponin I < 0.012 Impressions: Chest/Abdomen CTA 03/08/16 00:00 IMPRESSION: UNREMARKABLE CTA OF THE CHEST WITHOUT PULMONARY EMBOLUS IDENTIFIED. STABLE CHRONIC LUNG CHANGE ABOVE. Chest X-Ray 03/08/16 12:16 IMPRESSION: Obstructive lung disease with some superimposed pulmonary fibrosis. No acute infiltrates Ankle X-Ray 03/09/16 00:00 IMPRESSION: Lateral soft tissue swelling with ankle joint effusion. Small bony fragments along the inferior tip of the lateral malleolus, likely chronic. Superimposed acute injury could not be excluded Assessment & Plan - Diagnosis (1) Avulsion fracture of left ankle Qualifiers: Encounter type: subsequent encounter Fracture type: closed Fracture healing: with routine healing Qualified Code(s): S82.892D - Other fracture of left lower leg, subsequent encounter for closed fracture with routine healing Is this a current diagnosis for this admission?: YesPlan: At this point I have recommended immobilization with a pneumatic walking boot when ambulating. She may remove it while in bed and for short distances. She will continue ice and elevation. May follow up with me in 3 weeks.
--- NOTE | 2016-03-10 17:05 | PDOC DISCHARGE SUMMARY ---
General - Admit/Disc Date/PCP Admission Date/Primary Care Provider: 03/08/16 15:50 Dr. Hung[address] Consulting orthopedist Dr. Bass Discharge Date: 03/10/16 - Discharge Diagnosis (1) Acute asthmatic bronchitis Is this a current diagnosis for this admission?: Yes (2) Avulsion fracture of left ankle Is this a current diagnosis for this admission?: Yes (3) COPD exacerbation Is this a current diagnosis for this admission?: Yes (4) Hypokalemia Is this a current diagnosis for this admission?: Yes (5) Fibromyalgia Is this a current diagnosis for this admission?: Yes (6) Family history of ischemic heart disease Is this a current diagnosis for this admission?: No (7) Tobacco use disorder Is this a current diagnosis for this admission?: Yes - Additional Information Resuscitation Status: Full Code Discharge Diet: As Tolerated Discharge Activity: Activity As Tolerated Home Medications: Cetirizine HCl [Zyrtec] 10 mg PO DAILY 12/30/13 Aspirin [Ecotrin 81 mg EC Tablet] 81 mg PO DAILY #30 tabec 01/01/14 Clonazepam [Klonopin 1 mg Tablet] 1 mg PO TID PRN #20 tablet 01/01/14 Ketorolac Tromethamine 10 mg PO BIDP #10 tablet 01/01/14 [place]-3 Fatty Acids/Fish Oil [Fish Oil 1,000 mg Capsule] 1 each PO BID #60 capsule 01/01/14 Zolpidem Tartrate [Ambien] 10 mg PO QHS PRN #20 tablet 01/01/14 Albuterol Sulfate [Proair HFA] 2 puff IH Q4 PRN 03/09/16 Albuterol Sulfate [Ventolin 0.042% Neb 1.25 mg/3 mL Ampul] 1 vial NEB QID PRN Brexpiprazole [Rexulti] 3 mg PO DAILY 03/09/16 Gabapentin 200 mg PO QID 03/09/16 Metoprolol Tartrate [Lopressor] 50 mg PO BID 03/09/16 Triamcinolone Acetonide [Nasacort] 1 spray NASL QID PRN 03/09/16 Doxycycline Hyclate [Vibramycin 100 mg Tablet] 100 mg PO Q12 #10 tablet Hydrocodone Bit/Acetaminophen [Hydrocodon-Acetaminophn 10-325] 1 each PO QID PRN #10 tablet 03/10/16 Prednisone [Deltasone 10 mg Tablet] 10 mg PO ASDIR PRN #21 tablet 03/10/16 Venlafaxine HCl [Effexor Xr] 150 mg PO Q12H #28 cap.sr.24h 03/10/16 History of Present Illness Patient complains of: Shortness of breath and wheezing History of Present Illness: YAZAN MCCOY is a 60 year old female with a past medical history of tobacco dependency and fibromyalgia. The patient presented to the emergency department with a two-week history of bronchitis type symptoms. The patient been seen and evaluated by her primary care provider Dr. Hung had been started on Ceftin and Zithromax. The patient presented with chest heaviness and wheezing. Given the patient's chest pain and heaviness the patient was referred to the hospitalist for observation and management. The patient also states that she had an avulsion fracture of her left ankle 2 weeks ago. The patient was seen and was placed in a boot. The patient was told that this should continue to heal however the patient states that her pain is much worse today than it was when she had the fracture. Hospital Course Hospital Course: The patient was observed in a continues telemetry unit, serial cardiac enzymes were obtained which were nonsuggestive. The patient's EKG revealed no acute changes and the patient had no events on recorder gravity prospecting. The patient was placed on scheduled nebs as well as PRN nebs, steroids, and supplemental oxygen. The patient is back to baseline and able to complete sentences. The patient was evaluated by orthopedics given her ankle injury and she has been cleared for discharge from orthopedic standpoint to follow-up in outpatient basis in 2 weeks. Given the patient's history of depression and crying spells the patient asked to be evaluated by psych. The patient is cleared for discharge from a psychiatric perspective with the curved the following up with her outpatient psych provider. The patient denies suicidal, homicidal, or intent to self-harm ideations Physical Exam Vital Signs: Temp Pulse Resp BP Pulse Ox 97.7 F 66 17 117/70 98 03/10/16 11:26 03/10/16 15:50 03/10/16 15:50 03/10/16 11:26 03/10/16 11:26 Intake & Output 0103/09/16 03/10/16 23:59 23:59 23:59 Intake Total 1450 900 Balance 1450 900 Weight 74.1 kg 74 kg 75.7 kg General appearance: PRESENT: no acute distress, well-developed, well-nourished Head exam: PRESENT: atraumatic, normocephalic Eye exam: PRESENT: conjunctiva pink, EOMI, PERRLA. ABSENT: scleral icterus Ear exam: PRESENT: normal external ear exam Mouth exam: PRESENT: moist, tongue midline Neck exam: ABSENT: carotid bruit, JVD, lymphadenopathy, thyromegaly Respiratory exam: PRESENT: decreased breath sounds, symmetrical, unlabored, faint wheezes. ABSENT: rales, rhonchi, tachypnea Cardiovascular exam: PRESENT: RRR. ABSENT: diastolic murmur, rubs, systolic murmur Pulses: PRESENT: normal dorsalis pedis pul Vascular exam: PRESENT: normal capillary refill GI/Abdominal exam: PRESENT: normal bowel sounds, soft. ABSENT: distended, guarding, mass, organolmegaly, rebound, tenderness Rectal exam: PRESENT: deferred Extremities exam: PRESENT: full ROM, other - Hard cast in place on left leg. ABSENT: calf tenderness, clubbing, pedal edema Neurological exam: PRESENT: alert, awake, oriented to person, oriented to place , oriented to time, oriented to situation, CN II-XII grossly intact. ABSENT: motor sensory deficit Psychiatric exam: PRESENT: depressed, unusual affect. ABSENT: homicidal ideation, suicidal ideation Skin exam: PRESENT: dry, intact, warm. ABSENT: cyanosis, rash Results Laboratory Results: 03/08/16 22:09 Troponin I < 0.012 Impressions: Chest/Abdomen CTA 03/08/16 00:00 IMPRESSION: UNREMARKABLE CTA OF THE CHEST WITHOUT PULMONARY EMBOLUS IDENTIFIED. STABLE CHRONIC LUNG CHANGE ABOVE. Chest X-Ray 03/08/16 12:16 IMPRESSION: Obstructive lung disease with some superimposed pulmonary fibrosis. No acute infiltrates Ankle X-Ray 03/09/16 00:00 IMPRESSION: Lateral soft tissue swelling with ankle joint effusion. Small bony fragments along the inferior tip of the lateral malleolus, likely chronic. Superimposed acute injury could not be excluded Qualifiers PATEINT BEING DISCHARGED WITH ANY OF THE FOLLOWING DIAGNOSIS?: No Plan Discharge Plan: The patient is to followup with their primary care provider, Dr. Hung, within one week for hospital followup regarding acute asthmatic bronchitis The patient is to follow with Dr. Bass with orthopedics within 2 weeks for hospital follow-up. The patient is to follow-up with her psychiatric provider within one week for hospital follow-up.. Time Spent: Less than 30 Minutes
[2016-03-10 17:22] VITALS: BP 117/61
--- NOTE | 2016-03-11 15:27 | PSYCHOLOGICAL NOTE ---
Psych Note - Psych Note Psych Note: Patient is a 60 year old female who has been admitted to [facility] for difficulty breathing. Patient was also consulted due to ankle pain. Patient was referred for psychiatric consultation per her request after she presented tearful and labile in mood for multiple days in a row. Patient today is accompanied by her daughter, who is bedside. Patient states she just needs to talk with someone, and states she feels as though since she has not had all of her medications, she is "a little off." Patient states she is followed by [facility], for what she reports as Major Depressive Disorder and anxiety. Patient states she has been prescribed Effexor for a number of years, as well as now Adderall, Clonazepam, Tomazepam, and Rexulti. Patient states she has not had her Rexulti here in the hospital, which she cites as the reason for her tearfulness and persistent thoughts about her family members. Patient states she has lost a number of family members to include her mother and father a month apart in 2004 as well as her uncle and daughter to suicides. Patient states she administered CPR to each of these individuals. Patient reports she has numerous current stressors, to include helping her daughter with a custody disagreement, her own disability (?) and depression and anxiety. Patient denies wanting to harm herself or anyone else. Patient states her daughter who is bedsides now resides in her home and assists her with transportation. Patient reports no complaints at this time, but reports she is mostly concerned with obtaining needed prescriptions upon discharge. Patient denies current suicidal ideations, and further denies any suicidal ideations in the past. Contacted patient's pharmacy who reports the following medications: Gabapenting 300 mg tid and Hydrocodone 10-325 qid both filled 03/[address] Wolfe Tomazepam 15 mg 2 tabs qhs; Clonazepam 1 mg bid; and Effexor XR 15 mg bid each filled 02/[address] Henson with 0 current refilles Rexulti 3 mg qd prescribed by Dr. Darleen Murdock and filled 01/22. Patient does have 1 refill. Patient is A&Ox4. Mood is labile with mostly tearful affect. Patient denies suicidal/homicidal ideations, intent, plan, or means. Patient denies A/V H; delusions not noted. Thought processes were organized. Conversational speech was WNL for rate, tone, and prosody. Intellectual abilities were estimated within average range. Attention and focus were fair. Insight, judgment, and impulse control were fair. 296.31 (F33.0) Major Depressive Disorder, Recurrent, Mild, per history Patient is psychiatrically cleared for discharge. Patient is [facility] to resume her medication management. Strongly encouraged patient to engage in outpatient therapy, and provided patient the resources so she may pursue a provider of her choice. Patient denies suicidal/homicidal ideations. She resides with her adult daughter who was bedside during conversation. Daughter reports she is in agreement to assist the patient with following up with her provider, scheduling a counseling appointment, as well as overseeing her medication use. I consulted with Dr. Bran in regards to the care and management of this patient. Hospitalist is in agreement with disposition and recommendations.
== END 2016-03-10 18:12 | disposition home or self-care (01) ==
LOC: ER 11:52 → EH 15:50 → UNDOADMOB 16:32 → EH 16:32 → 4S 22:43
PROVIDERS: ADMIT Family Medicine; ATTEND Family Medicine
DX: J44.1 Chronic obstructive pulmonary disease with (acute) exacerbation (principal); J20.9 Acute bronchitis, unspecified; J44.0 Chronic obstructive pulmonary disease with (acute) lower respiratory infection; J45.909 Unspecified asthma, uncomplicated; S82.892D Other fracture of left lower leg, subsequent encounter for closed fracture with routine healing; X58.XXXD Exposure to other specified factors, subsequent encounter; E87.6 Hypokalemia; M79.7 Fibromyalgia; F17.210 Nicotine dependence, cigarettes, uncomplicated; Z82.49 Family history of ischemic heart disease and other diseases of the circulatory system; Z79.82 Long term (current) use of aspirin; Z79.52 Long term (current) use of systemic steroids; I71.4 Abdominal aortic aneurysm, without rupture; M06.9 Rheumatoid arthritis, unspecified; F32.9 Major depressive disorder, single episode, unspecified
CPT/HCPCS: 93005 ×2; 94640 ×5; 99285; 36415 ×2; 87040; 87070; 87205; 82553; 82550; 83690; 85025; 80053; 84484; 82803; 73610; 71010; 71275; 94799; 93010 ×2; 94667; G0378 ×4; A9270 ×32; J1650 ×2; J3490 ×6; J7512; J7620

== ENCOUNTER 2016-08-10 18:51 | Emergency (ER) | payer MEDICARE ==
[2016-08-10] MEDS ORDERED: DIPH/PERTUSS(ACELL)/TETANUS VAC/PF 0.5 ML SYR (>=10YO) IM ONE (19:25)
[2016-08-10] MEDS ORDERED: HYDROCODONE/ACETAMINOPHEN 5-325 MG TABLET PO ONE (19:25)
--- NOTE | 2016-08-10 20:27 | RADIOLOGY REPORT (SQ) ---
EXAM DESCRIPTION: ANKLE RIGHT COMPLETE COMPLETED DATE/TIME: 08/10/2016 7:58 pm REASON FOR STUDY: fall, generalized r ankle pain COMPARISON: None. NUMBER OF VIEWS: Three views. TECHNIQUE: AP, lateral, and oblique radiographic images acquired of the right ankle. LIMITATIONS: None. FINDINGS: MINERALIZATION: Normal. BONES: No acute fracture or dislocation. No worrisome bone lesions. JOINTS: No effusions. SOFT TISSUES: No soft tissue swelling. No foreign body. OTHER: No other significant finding. IMPRESSION: NEGATIVE STUDY OF THE RIGHT ANKLE. NO RADIOGRAPHIC EVIDENCE OF ACUTE INJURY. TECHNICAL DOCUMENTATION: JOB ID: [id number] [email or web address]- All Rights Reserved
--- NOTE | 2016-08-10 20:28 | RADIOLOGY REPORT (SQ) ---
EXAM DESCRIPTION: FOOT RIGHT COMPLETE COMPLETED DATE/TIME: 08/10/2016 7:58 pm REASON FOR STUDY: fall, r midfoot, gr toe pain COMPARISON: None. NUMBER OF VIEWS: Three views. TECHNIQUE: AP, lateral and oblique radiographic images acquired of the right foot. LIMITATIONS: None. FINDINGS: MINERALIZATION: Normal. BONES: No acute fracture or dislocation. No worrisome bone lesions. 1st metatarsophalangeal joint d egenerative changes. JOINTS: No effusions. SOFT TISSUES: No soft tissue swelling. No foreign body. OTHER: No other significant finding. IMPRESSION: 1ST METATARSOPHALANGEAL JOINT DEGENERATIVE CHANGES MAY BE RELATED TO THE PATIENT'S PRESE NTING SYMPTOMS. NO EVIDENCE OF ACUTE OSSEOUS INJURY. TECHNICAL DOCUMENTATION: JOB ID: [id number] [employer]- All Rights Reserved
--- NOTE | 2016-08-10 20:29 | RADIOLOGY REPORT (SQ) ---
EXAM DESCRIPTION: TOE LEFT COMPLETED DATE/TIME: 08/10/2016 7:58 pm REASON FOR STUDY: fall, gr toe pain COMPARISON: None. NUMBER OF VIEWS: Three views. TECHNIQUE: AP, lateral, and oblique images acquired of the left first toe. LIMITATIONS: None. FINDINGS: MINERALIZATION: Normal. BONES: No acute fracture or dislocation. No worrisome bone lesions. JOINTS: No effusions. SOFT TISSUES: No soft tissue swelling. No foreign body. OTHER: No other significant finding. IMPRESSION: NEGATIVE STUDY OF THE LEFT TOE. NO RADIOGRAPHIC EVIDENCE OF ACUTE INJURY. COMMENT: SITE OF TRAUMA/COMPLAINT MARKED/STAMP COMPLETED: NOT APPLICABLE. TECHNICAL DOCUMENTATION: JOB ID: [id number] [employer] All Rights Reserved
--- NOTE | 2016-08-10 20:40 | ER Document Report ---
HPI - HPI Patient complains to provider of: foot And ankle injury Onset: This afternoon Onset/Duration: Persistent Quality of pain: Sharp Pain Level: 5 Context: Patient states that she was going down steps and her granddaughter let go of the door causing her to lose her balance and fall. Patient complains of pain to by lateral great toes, right foot and right ankle. Associated Symptoms: Other - r foot/ankle, left gr toe pain Exacerbated by: Standing, Movement, Walking Relieved by: Denies Similar symptoms previously: No Recently seen / treated by doctor: No - ROS ROS below otherwise negative: Yes Systems Reviewed and Negative: Yes All other systems reviewed and negative - NEURO Neurology: DENIES: Weakness - CARDIOVASCULAR Cardiovascular: DENIES: Chest pain - RESPIRATORY Respiratory: DENIES: Trouble Breathing - GASTROINTESTINAL Gastrointestinal: DENIES: Nausea, Patient vomiting - MUSCULOSKELETAL Musculoskeletal: REPORTS: Extremity pain, Swelling - DERM Skin Color: Normal, Other Notes: abrasion to foot Past Medical History - General Information source: Patient - Social History Smoking Status: Never Smoker Chew tobacco use (# tins/day): No Frequency of alcohol use: None Drug Abuse: None Lives with: Spouse/Significant other Family History: Reviewed & Not Pertinent Patient has suicidal ideation: No Patient has homicidal ideation: No - Past Medical History Cardiac Medical History: Denies: Hx Hypertension Pulmonary Medical History: Reports: Hx Bronchitis, Hx COPD Renal/ Medical History: Denies: Hx Peritoneal Dialysis GI Medical History: Reports: Hx Irritable Bowel Musculoskeltal Medical History: Reports Hx Arthritis - Rheumatoid arthritis, Reports Hx Fibromyalgia Psychiatric Medical History: Reports: Hx Depression Past Surgical History: Reports: Hx Breast Surgery - lumpectomy, Hx Hysterectomy - Immunizations Hx Diphtheria, Pertussis, Tetanus Vaccination: Yes Vertical Provider Document - CONSTITUTIONAL Agree With Documented VS: Yes Exam Limitations: No Limitations General Appearance: WD/WN, No Apparent Distress - INFECTION CONTROL TRAVEL OUTSIDE OF THE [place] IN LAST 30 DAYS: No - HEENT HEENT: Atraumatic, Normocephalic - NECK Neck: Normal Inspection - RESPIRATORY Respiratory: Breath Sounds Normal, No Respiratory Distress O2 Sat by Pulse Oximetry: 94 - CARDIOVASCULAR Cardiovascular: Regular Rate, Regular Rhythm Pulses: Normal: Posterior tibial, Dorsalis pedis - MUSCULOSKELETAL/EXTREMETIES Musculoskeletal/Extremeties: MAEW, Tender - Great toe tenderness, right great toe tenderness, right midfoot tenderness with 2+ edema, right ankle generalized tenderness, no deformity - NEURO Level of Consciousness: Awake, Alert, Appropriate Motor/Sensory: No Motor Deficit - DERM Integumentary: Warm, Dry Notes: abrasion to bilateral great toes Course - Vital Signs Vital signs: Temp Pulse Resp BP Pulse Ox 98.4 F 102 H 20 139/71 H 94 08/10/16 18:57 08/10/16 18:57 08/10/16 18:57 08/10/16 18:57 08/10/16 18:57 - Diagnostic Test Radiology reviewed: Reports reviewed Procedures - Immobilization Left Foot Pre-Proc Neuro Vasc Exam: Normal Immobilizer type: Post-op shoe Performed by: PCT Post-Proc Neuro Vasc Exam: Normal Alignment checked and good: Yes Right Foot Pre-Proc Neuro Vasc Exam: Normal Immobilizer type: Thomas wrap, Post-op shoe Performed by: PCT Post-Proc Neuro Vasc Exam: Normal Alignment checked and good: Yes Discharge - Discharge Clinical Impression: Fall Qualifiers: Encounter type: initial encounter Qualified Code(s): W19.XXXA - Unspecified fall, initial encounter Toe abrasion Qualifiers: Encounter type: initial encounter Laterality: unspecified laterality Qualified Code(s): S90.416A - Abrasion, unspecified lesser toe(s), initial encounter Sprain of foot, right Qualifiers: Encounter type: initial encounter Qualified Code(s): S93.601A - Unspecified sprain of right foot, initial encounter Right ankle sprain Qualifiers: Encounter type: initial encounter Involved ligament of ankle: unspecified ligament Qualified Code(s): S93.401A - Sprain of unspecified ligament of right ankle, initial encounter Condition: Stable Disposition: HOME, SELF-CARE Instructions: Sprained Ankle ([facility]), Sprain ([facility]), Ice Packs ([facility]), Thomas Wrap ( [facility]), Post-Op Shoe ([facility]) Additional Instructions: Return immediately for any new or worsening symptoms Followup with your primary care provider, call tomorrow to make a followup appointment Weightbearing as tolerated Follow-up with orthopedic doctor for any continued pain or problems Prescriptions: Walker [Folding Walker] 1 each MC ASDIR PRN #1 each PRN Reason: Referrals: NOELLE FLEMING MD [Primary Care Provider] - Follow up as needed [facility] [Provider Group] - Follow up as needed
[2016-08-10 20:57] VITALS: BP 134/58
== END 2016-08-10 21:10 | disposition home or self-care (01) ==
LOC: ER 18:51
DX: S93.601A Unspecified sprain of right foot, initial encounter (principal); S90.416A Abrasion, unspecified lesser toe(s), initial encounter; S93.401A Sprain of unspecified ligament of right ankle, initial encounter; M79.671 Pain in right foot; M25.571 Pain in right ankle and joints of right foot; W19.XXXA Unspecified fall, initial encounter
CPT/HCPCS: 99283; 90471; 73610; 73630; 73660; 90715; A9270

== ENCOUNTER → 2017-04-07 | Outpatient (CLI) | payer MEDICARE, MEDICAID ==
--- NOTE | 2017-04-08 08:45 | RADIOLOGY REPORT (SQ) ---
EXAM DESCRIPTION: CT SOFT TISSUE NECK WITH COMPLETED DATE/TIME: 04/07/2017 3:55 pm REASON FOR STUDY: LYMPHADENOPATHY R59.0 LOCALIZED ENLARGED LYMPH NODES COMPARISON: None. TECHNIQUE: Post IV contrasted scanning from skull base through lung apices with review of bone, soft tissue and lung windows. Reconstructed coronal and sagittal MPR images reviewed. All images stored on PACS. All CT scanners at this facility use dose modulation, iterative reconstruction, and/or weight based d osing when appropriate to reduce radiation dose to as low as reasonably achievable (ALARA). [facility]: Dose Right [facility]: CareDose [facility]: Dose Right [facility]: Teradose 4D [facility]: Certus CONTRAST TYPE AND DOSE: contrast/concentration: Isovue 370.00 mg/ml; Total Contrast Delivered: 75.0 ml; Total Saline Delivered: 55.0 ml RENAL FUNCTION: Creatinine 0.9. RADIATION DOSE: . LIMITATIONS: None. FINDINGS: SKULL BASE: Intact. MAJOR SALIVARY GLANDS: No solid or cystic masses. No inflammatory changes. LYMPHADENOPATHY: Scattered bilateral cervical lymph nodes. A few lymph nodes on the right side measu re between 1 and 1.5 cm in maximum longitudinal measurement. MUCOSAL MASSES OR ASYMMETRY: No mucosal masses or asymmetry. LARYNX/CORDS: No abnormal findings. VASCULAR STRUCTURES: The major vessels are patent. LUNG APICES: Clear. BONES: Intact. THYROID: Heterogenous nodular appearance of the right lobe of the thyroid. PARANASAL SINUSES: Clear. OTHER: No other significant finding. IMPRESSION: 1. MILD CERVICAL ADENOPATHY, RIGHT GREATER THAN LEFT. PROBABLY INCIDENTAL REACTIVE LYMPH NODES. IF THERE IS STRONG CLINICAL CONCERN, PET SCAN MAY BE CONSIDERED. 2. HETEROGENOUS NODULAR APPEARANCE OF THE RIGHT LOBE OF THE THYROID. TECHNICAL DOCUMENTATION: JOB ID: [id number] Quality ID # [id number]: Final reports with documentation of one or more dose reduction techniques (e.g., Au tomated exposure control, adjustment of the mA and/or kV according to patient size, use of iterative reconstruction technique) 2010 [employer]- All Rights Reserved
== END ==
LOC: RAD 15:21
PROVIDERS: ATTEND Otolaryngology
DX: R59.0 Localized enlarged lymph nodes (principal)
CPT/HCPCS: 70491; 82565

== ENCOUNTER → 2017-04-21 | Day surgery (SDC) | payer MEDICAID, MEDICARE ==
--- NOTE | 2017-04-21 16:33 | RADIOLOGY REPORT (SQ) ---
EXAM DESCRIPTION: U/S BIOPSY SUPERFIC LYMPH NODE COMPLETED DATE/TIME: 04/21/2017 11:17 am REASON FOR STUDY: R59.9 ENLARGED LYMPH NODES, UNSPECIFIED R59.9 ENLARGED LYMPH NODES, UNSPECIFIED COMPARISON: CT soft tissue neck 04/07/2017 TECHNIQUE: The procedure was discussed with the patient and the patient agreed to proceed. The patient was examined with ultrasound, and along the right posterior triangle of the neck, just de ep to the posterior edge of the sternocleidomastoid muscle, a 9 x 5 mm lymph node and 7 by 5 mm lymph node are present. This correlates with the patient's palpable abnormality. The 9 x 5 mm lymph node was selected for biopsy from posterior approach under real-time observation with ultrasound. After sterile skin prep and 3.5 mL local lidocaine 1% for skin and deep tissue anesthesia, a 14 gauge coaxial core biopsy needle was used to obtain several cores of tissue from the right posterior trian gle lymph node. Tissue was submitted to the lab in formalin. Under ultrasound guidance, a ribbon c lip was placed in the areas sampled. There were no immediate post-procedure complications. Pathology is pending LIMITATIONS: None. FINDINGS: Ultrasound guided right posterior neck lymph node biopsy Pathology is pending. A clip was placed in the biopsied lymph node. IMPRESSION: ULTRASOUND-GUIDED CORE BIOPSY OF THE SMALL POSTERIOR RIGHT NECK LYMPH NODES PATHOLOGY IS PENDING COMMENT: Patient medication list reviewed: Yes- Quality ID# [id number]:Eligible professional attests to doc umenting in the medical record they obtained, updated, or reviewed the patient's current medications. TECHNICAL DOCUMENTATION: JOB ID: [id number] [employer]- All Rights Reserved Reading location - IP/workstation name: [email or web address]
== END ==
LOC: RAD 09:54
PROVIDERS: ATTEND Otolaryngology
PROC: 07B13ZX Excision of Right Neck Lymphatic, Percutaneous Approach, Diagnostic (ICD-10-PCS; principal; 2017-04-21)
DX: R59.9 Enlarged lymph nodes, unspecified (principal)
CPT/HCPCS: 38505; 88305

== ENCOUNTER → 2017-05-08 | Day surgery (SDC) | payer MEDICARE ==
[~2017-05-08] MED LIST: LIDOCAINE 1% INJ-PF (10 MG/ML) 30 ML SDV ONE
--- NOTE | 2017-05-08 16:27 | RADIOLOGY REPORT (SQ) ---
EXAM DESCRIPTION: U/S BIOPSY THYROID COMPLETED DATE/TIME: 05/08/2017 3:48 pm REASON FOR STUDY: NONTOXIC SINGLE THYROID NODULE E04.1 NONTOXIC SINGLE THYROID NODULE COMPARISON: None. TECHNIQUE: Sonographic images of the thyroid were acquired prior to biopsy. There are two solid nod ules in the right lobe. The more superior nodule measures 8 mm and the more inferior nodule measures 1.8 cm. The more inferior nodule has a cystic component measuring 1 cm. The procedure was discussed with the patient and written informed consent obtained. A timeout was pe rformed to confirm the procedure and patient's identity. The skin of the neck was prepped and draped in sterile fashion and 10 mL 1% lidocaine administered for local anesthesia. Under sonographic guid ance, separate fine needle aspiration biopsies were performed of the two nodules in the right lobe of the thyroid. A single aspiration of the superior nodule was performed and two aspirations of the inferior nodule w ere performed. Each sample was evaluated by the fire alarm technician to confirm adequate tissue. Hemost asis was obtained with direct manual compression. There were no immediate complications. LIMITATIONS: None. FINDINGS: PATHOLOGY: Pending. IMPRESSION: ULTRASOUND-GUIDED BIOPSY PERFORMED OF TWO NODULES IN THE RIGHT LOBE OF THE THYROID. PAT HOLOGY PENDING AT THE TIME OF DICTATION. COMMENT: Patient medication list reviewed: Yes- Quality ID# [id number]:Eligible professional attests to doc umenting in the medical record they obtained, updated, or reviewed the patient's current medications. TECHNICAL DOCUMENTATION: JOB ID: [id number] [employer]- All Rights Reserved Reading location - IP/workstation name: [facility]
== END ==
LOC: RAD 13:40
PROVIDERS: ATTEND Otolaryngology
PROC: 0GBH3ZX Excision of Right Thyroid Gland Lobe, Percutaneous Approach, Diagnostic (ICD-10-PCS; principal; 2017-05-08)
DX: E04.1 Nontoxic single thyroid nodule (principal)
CPT/HCPCS: 88173 ×2; 60100; J3490

== ENCOUNTER → 2017-07-10 | Outpatient (CLI) | payer MEDICARE ==
--- NOTE | 2017-07-11 08:49 | RADIOLOGY REPORT (SQ) ---
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 Coronal T2/ HASTE imaging. LIMITATIONS: None. FINDINGS: VISUALIZED UPPER ABDOMEN: Infrarenal abdominal aorta is ectatic, 3.5 cm in greatest transv erse diameter best shown on coronal series 5, image 6, and axial T2 image 11. Yearly follow-up abdom inal aorta ultrasound screening for abdominal aorta enlargement is recommended SEGMENTATION: No transitional anatomy. The lowest well-developed disc space is labeled L5-S1. ALIGNMENT: Anatomic. VERTEBRAE: A chronic 50% anterior T12 compression deformity is present. At L1, 25% anterior loss of height of L1 is present with an upper endplate depression. There is pauline cent mild marrow edema. This is likely subacute and best shown on sagittal image 8. BONE MARROW: Mild marrow edema along the anterior superior endplate of L1. Benign hemangioma in the L1 vertebral body. DISC SIGNAL: Normal. No significant abnormal signal or loss of height. POSTERIOR ELEMENTS: Generally intact. No pars defect evident. HARDWARE: None in the spine. CORD AND CONUS: Normal in size and signal intensity. Conus at the T12 level. SOFT TISSUES: No aortic aneurysm seen. No bulky retroperitoneal adenopathy or mass. No paraspinal mas s or fluid. T11-12: At the upper edge of the field of view. Mild bilateral facet hypertrophy with mild bilatera l foraminal narrowing. No central stenosis. T12-L1: Minimal diffuse posterior disc bulging is present with mild bilateral facet hypertrophy. No central or foraminal encroachment. L1-L2: Asymmetric rightward lateral and foraminal disc bulge causes mild right foraminal narrowing wi thout exiting L1 nerve root impingement. No central stenosis or left foraminal narrowing. L2-L3: Minimal diffuse posterior disc bulging is present. Mild bilateral facet and ligament hypertro phy. Mild bilateral inferior foraminal narrowing without exiting L2 nerve root impingement. No cent ral stenosis. L3-L4: Mild diffuse posterior disc bulging and mild bilateral facet and ligament hypertrophy are pres ent. No central stenosis. Mild bilateral inferior foraminal narrowing without exiting L3 nerve root impingement. L4-L5: Mild diffuse posterior disc bulging is present with mild bilateral facet and ligament hypertro phy. No central stenosis. Mild bilateral inferior foraminal narrowing without exiting L4 nerve root impingement. L5-S1: Mild diffuse posterior disc bulge and bony spurring, mild bilateral facet hypertrophy. No shon tral stenosis. Mild bilateral inferior foraminal narrowing without exiting L5 nerve root impingement . SACRUM: Visualized upper sacrum intact. OTHER: No other significant findings. IMPRESSION: No significant central or foraminal stenosis. Subacute upper endplate anterior compression of L1, chronic wedge compression of T12 Incidental finding of ectasia infrarenal abdominal aorta, 3.5 cm in greatest diameter TECHNICAL DOCUMENTATION: JOB ID: [id number] [employer]- All Rights Reserved Reading location - IP/workstation name: [email or web address]
== END ==
LOC: RAD 16:30
PROVIDERS: ATTEND Physician Assistant
DX: M51.36 Other intervertebral disc degeneration, lumbar region (principal); M47.816 Spondylosis without myelopathy or radiculopathy, lumbar region
CPT/HCPCS: 72148

== ENCOUNTER → 2017-09-08 | Outpatient (CLI) | payer MEDICARE, MEDICAID ==
[~2017-09-08] MED LIST changes: +CEFAZOLIN 1 GM/D5W RTU 1 GM/50 ML RTUPB IV PRN; +LACTATED RINGERS 1000 ML IV PRN; +LIDOCAINE 0.5% INJ-PF (5 MG/ML) 50 ML SDV SUBCUT PRN; +SODIUM BICARBONATE 8.4% INJ 50 MEQ/50 ML DISP.SYRIN ONE
[2017-09-08 08:44] VITALS: BP 128/72
[2017-09-08 10:38] LABS: HEMATOCRIT 41.5 % (36.0-47.0); HEMOGLOBIN 14.2 g/dL (12.0-15.5); MEAN CORPUSCULAR HEMOGLOBIN 28.8 pg (27.0-33.4); MEAN CORPUSCULAR HGB CONC 34.2 g/dL (32.0-36.0); MEAN CORPUSCULAR VOLUME 84 fl (80-97); PLATELET COUNT 286 10^3/uL (150-450); RED BLOOD COUNT 4.92 10^6/uL (3.72-5.28); RED CELL DISTRIBUTION WIDTH 15.6 % (11.5-14.0); WHITE BLOOD COUNT 12.2 10^3/uL (4.0-10.5)
[2017-09-08 10:46] LABS: APPEARANCE,URINE SLIGHTLY-CLOUDY; BILIRUBIN,URINE NEGATIVE (NEGATIVE); COLOR,URINE YELLOW; GLUCOSE, URINE NEGATIVE (NEGATIVE); KETONES,URINE NEGATIVE (NEGATIVE); LEUKOCYTE ESTERASE,URINE TRACE (NEGATIVE); NITRITE,URINE NEGATIVE (NEGATIVE); PROTEIN,URINE NEGATIVE (NEGATIVE); URINE SPECIFIC GRAVITY 1.016
[2017-09-08 10:49] LABS: INTERNATIONAL RATION (INR) 0.85
[2017-09-08 10:50] LABS: PARTIAL THROMBOPLASTIN TIME 27.3 SEC (23.5-35.8)
--- NOTE | 2017-09-08 19:26 | EKG REPORT ---
SEVERITY:- ABNORMAL ECG - SINUS RHYTHM NONSPECIFIC INTRAVENTRICULAR CONDUCTION DELAY ST DEPRESSION, CONSIDER ISCHEMIA, LAT LEADS : Confirmed by: Angelia Slater 08-Sep-2017 19:24:05
== END ==
LOC: OD 09:30 → EDSTATUS 09-09 11:00
PROVIDERS: ATTEND Pain Medicine Interventional Pain Medicine
DX: Z01.818 Encounter for other preprocedural examination (principal); S32.009A Unspecified fracture of unspecified lumbar vertebra, initial encounter for closed fracture
CPT/HCPCS: 36415; 81001; 85027; 85610; 85730; 93005; 93010; J0690; J3490

== ENCOUNTER 2017-09-30 13:43 | Day surgery (SDC) | payer MEDICARE, MEDICAID ==
[2017-09-25 11:10] LABS: HEMATOCRIT 40.7 % (36.0-47.0); HEMOGLOBIN 13.8 g/dL (12.0-15.5); MEAN CORPUSCULAR HEMOGLOBIN 28.3 pg (27.0-33.4); MEAN CORPUSCULAR HGB CONC 33.9 g/dL (32.0-36.0); MEAN CORPUSCULAR VOLUME 83 fl (80-97); PLATELET COUNT 268 10^3/uL (150-450); RED BLOOD COUNT 4.88 10^6/uL (3.72-5.28); RED CELL DISTRIBUTION WIDTH 15.9 % (11.5-14.0); WHITE BLOOD COUNT 6.1 10^3/uL (4.0-10.5)
[2017-09-25 11:11] LABS: APPEARANCE,URINE CLEAR; BILIRUBIN,URINE NEGATIVE (NEGATIVE); COLOR,URINE YELLOW; GLUCOSE, URINE NEGATIVE (NEGATIVE); INTERNATIONAL RATION (INR) 0.94; KETONES,URINE NEGATIVE (NEGATIVE); LEUKOCYTE ESTERASE,URINE NEGATIVE (NEGATIVE); NITRITE,URINE NEGATIVE (NEGATIVE); PROTEIN,URINE NEGATIVE (NEGATIVE); URINE SPECIFIC GRAVITY 1.015
[2017-09-25 11:12] LABS: PARTIAL THROMBOPLASTIN TIME 31.9 SEC (23.5-35.8)
[~2017-09-30 13:43] MED LIST changes: -LIDOCAINE 1% INJ-PF (10 MG/ML) 30 ML SDV ONE; -SODIUM BICARBONATE 8.4% INJ 50 MEQ/50 ML DISP.SYRIN ONE
[2017-09-30] MEDS ORDERED: FENTANYL CITRATE INJ/PF 100 MCG/2 ML AMPUL ONE ×2 (16:21→17:54)
[2017-09-30] MEDS ORDERED: PROPOFOL INJ 200 MG/20 ML VIAL IV ONE (16:22)
[2017-09-30] MEDS ORDERED: MIDAZOLAM 2 MG/2 ML INJ ONE (16:22)
[2017-09-30] MEDS ORDERED: LIDOCAINE 1% INJ-PF (10 MG/ML) 30 ML SDV ONE (16:25)
[2017-09-30] MEDS ORDERED: SODIUM BICARBONATE 8.4% INJ 50 MEQ/50 ML DISP.SYRIN ONE (16:26)
[2017-09-30] MEDS ORDERED: FENTANYL CITRATE INJ/PF 100 MCG/2 ML AMPUL IV PRN ×3 (17:12)
[2017-09-30] MEDS ORDERED: DIPHENHYDRAMINE HCL 50 MG/ML VIAL IV PRN (17:12)
[2017-09-30] MEDS ORDERED: MEPERIDINE HCL/PF INJ 25 MG/1 ML DISP.SYRIN IV PRN (17:12)
[2017-09-30] MEDS ORDERED: PROMETHAZINE HCL INJ 25 MG/1 ML VIAL IV PRN ×2 (17:12)
[2017-09-30] MEDS ORDERED: OXYCODONE HCL IR 5 MG TABLET PO PRN (18:05)
[2017-09-30 19:40] VITALS: BP 116/45
--- NOTE | 2017-09-30 21:10 | OPERATIVE REPORT E ---
Operative Report NAME: YAZAN MCCOY : 1955 AGE: 62Y DATE OF SURGERY: 09/30/2017 ROOM: PREOPERATIVE DIAGNOSIS: SUBACUTE L1 COMPRESSION FRACTURE. POSTOPERATIVE DIAGNOSIS: SUBACUTE L1 COMPRESSION FRACTURE. OPERATION: L1 balloon kyphoplasty under fluoroscopic guidance using bilateral peripedicular approach. SURGEON: CARLA OLVERA M.D. CHAIR INSTALLER: Erickson Conrad MD ANESTHESIA: MAC. BLOOD LOSS: Minimal. SPECIMENS REMOVED: None. COMPLICATIONS: None. INDICATIONS: Chronic intractable back pain associated with the affected level. PROCEDURE: After obtaining informed consent, advising the patient of the risks and benefits, including serious neurological injury, bleeding and infection, paralysis, allergic reaction, and failure to obtain adequate pain relief, she was taken to the operating room. She was placed comfortably in the prone position. Comfort was assessed visually and verbally. MAC anesthesia was administered. She was prepped, with appropriate drying time prior to draping. She was then draped simultaneously while obtaining fluoroscopy in AP and lateral view, using a biplanar technique with 2 units. It should be noted that decision was made preoperatively to not proceed with the T12 kyphoplasty, due to the chronicity of it and its presence on scans dating back to 2014 without change in appearance. Patient agreed with this preoperatively. Once suitable views were taken and the L1 fracture was identified, beginning on a right peripedicular approach with the selected skin entrance site. The skin was anesthetized with 1% lidocaine with bicarb, as were the subcutaneous tissue and periosteal tissue. A small incision was made in the skin. The Express trocar was then advanced down to the peripedicular location on the right and entering into the pedicle as it progressed anteriorly. Multiple views were taken. The cortex of the vertebral body was entered prior to passing the medial border of the right pedicle. The drill was then placed and advanced. Several attempts were made to get it anteriorly. The bone was then placed and expanded. This procedure was then repeated on the left, as described above. Once both balloons were satisfactorily inflated, mixing of the cement was prepared. The balloons were then deflated, beginning on the right side. A total of 2.2 mL of cement were injected incrementally, and on the left, a total of 1 mL of cement was injected. Decision was made to stop injecting on the left once a small amount of cement was noted to escape into the T12-L1 disk space outside the superior endplate of L1. The filler tubes were removed. Trocar were filled with the stylets. The cement was allowed to harden prior to removing all instrumentation. Once the instrumentation was removed, the region was cleansed. Sterile dressings were placed and the patient was taken to the PACU for further postoperative care and monitoring. DICTATING PHYSICIAN: CARLA OLVERA M.D. [id number] PHY#: [id number] ID: [id number] JOB#: [id number] ACCT: [id number] cc:CARLA OLVERA M.D. >
--- NOTE | 2017-09-30 22:34 | EKG REPORT ---
SEVERITY:- ABNORMAL ECG - SINUS RHYTHM PROBABLE LEFT ATRIAL ABNORMALITY REPOL ABNRM SUGGESTS ISCHEMIA, DIFFUSE LEADS : Confirmed by: Barbie Medellin MD 30-Sep-2017 22:33:19
--- NOTE | 2017-10-01 08:24 | RADIOLOGY REPORT (SQ) ---
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 TECHNIQUE: Intra-operative images acquired during surgical procedure to evaluate progress. NUMBER OF IMAGES: 26 radiographic images saved to pac's LIMITATIONS: None. FINDINGS: Intra procedural imaging and fluoro during kyphoplasty. Please see the operative report f or further details IMPRESSION: Intra procedural imaging and fluoro COMMENT: Quality ID 145: Final reports for procedures using fluoroscopy that document radiation exp osure indices, or exposure time and number of fluorographic images (if radiation exposure indices are not available) Please consult full operative report of the attending physician for description of the procedure. TECHNICAL DOCUMENTATION: JOB ID: [id number] [employer] All Rights Reserved Reading location - IP/workstation name: [email or web address]
--- NOTE | 2017-10-01 08:24 | RADIOLOGY REPORT (SQ) ---
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 TECHNIQUE: Intra-operative images acquired during surgical procedure to evaluate progress. NUMBER OF IMAGES: 26 radiographic images saved to pac's LIMITATIONS: None. FINDINGS: Intra procedural imaging and fluoro during kyphoplasty. Please see the operative report f or further details IMPRESSION: Intra procedural imaging and fluoro COMMENT: Quality ID 145: Final reports for procedures using fluoroscopy that document radiation exp osure indices, or exposure time and number of fluorographic images (if radiation exposure indices are not available) Please consult full operative report of the attending physician for description of the procedure. TECHNICAL DOCUMENTATION: JOB ID: [id number] [email or web address]- All Rights Reserved Reading location - IP/workstation name: [email or web address]
== END 2017-09-30 19:35 | disposition home or self-care (01) ==
LOC: OROUT 13:43
PROVIDERS: ATTEND Pain Medicine Interventional Pain Medicine
DX: S32.009A Unspecified fracture of unspecified lumbar vertebra, initial encounter for closed fracture (principal); X58.XXXA Exposure to other specified factors, initial encounter; M51.36 Other intervertebral disc degeneration, lumbar region; M47.816 Spondylosis without myelopathy or radiculopathy, lumbar region; M54.5 Low back pain; G89.4 Chronic pain syndrome; F45.42 Pain disorder with related psychological factors; E07.9 Disorder of thyroid, unspecified; G43.909 Migraine, unspecified, not intractable, without status migrainosus; J45.909 Unspecified asthma, uncomplicated; E78.00 Pure hypercholesterolemia, unspecified; R01.1 Cardiac murmur, unspecified; R00.0 Tachycardia, unspecified; M19.90 Unspecified osteoarthritis, unspecified site; M79.7 Fibromyalgia; Z79.01 Long term (current) use of anticoagulants; Z79.891 Long term (current) use of opiate analgesic; Z79.82 Long term (current) use of aspirin; Z79.51 Long term (current) use of inhaled steroids; Z79.1 Long term (current) use of non-steroidal anti-inflammatories (NSAID); J44.9 Chronic obstructive pulmonary disease, unspecified
CPT/HCPCS: 36415; 85027; 85610; 85730; 81001; 72100; 77002; 93005; 93010; 22514; C1713; Q9966; J2250; J0690; J3010; J3490 ×2; J2704; A9270; 1936

== ENCOUNTER → 2018-05-19 | Outpatient (CLI) | payer MEDICAID, MEDICARE ==
--- NOTE | 2018-05-19 13:40 | RADIOLOGY REPORT (SQ) ---
EXAM DESCRIPTION: CT SOFT TISSUE NECK WITH COMPLETED DATE/TIME: 05/19/2018 1:29 pm REASON FOR STUDY: NECK MASS R22.1 LOCALIZED SWELLING, MASS AND LUMP, NECK COMPARISON: 04/07/2017 TECHNIQUE: Post IV contrasted scanning from skull base through lung apices with review of bone, soft tissue and lung windows. Reconstructed coronal and sagittal MPR images reviewed. All images stored on PACS. All CT scanners at this facility use dose modulation, iterative reconstruction, and/or weight based d osing when appropriate to reduce radiation dose to as low as reasonably achievable (ALARA). [facility]: Dose Right [facility]: CareDose [facility]: Dose Right [facility]: Teradose 4D [facility]: Fresh ! CONTRAST TYPE AND DOSE: contrast/concentration: Isovue 350.00 mg/ml; Total Contrast Delivered: 75.0 ml; Total Saline Delivered: 55.0 ml RENAL FUNCTION: Creatinine 0.9 RADIATION DOSE: . LIMITATIONS: None. FINDINGS: SKULL BASE: Intact. MAJOR SALIVARY GLANDS: No solid or cystic masses. No inflammatory changes. LYMPHADENOPATHY: Bilateral cervical lymphadenopathy is again noted. Nodes are small in size in most likely reactive. There is stable to improved prevascular adenopathy as well. MUCOSAL MASSES OR ASYMMETRY: No mucosal masses or asymmetry. LARYNX/CORDS: No abnormal findings. VASCULAR STRUCTURES: The major vessels are patent. LUNG APICES: Clear. BONES: Intact. THYROID: Right lobe of the thyroid gland remains heterogeneous in appearance. Largest nodule measure s approximately 1.1 cm. PARANASAL SINUSES: Clear. OTHER: No other significant finding. IMPRESSION: 1. Numerous small cervical lymph nodes most likely reactive. None are pathologic based on size criteria. There is prevascular and mediastinal adenopathy which is stable to improved when c ompared to prior study. 2. Numerous nodules in the right lobe of the thyroid gland. The largest measures approximately 1.1 cm. TECHNICAL DOCUMENTATION: JOB ID: [id number] Quality ID # [id number]: Final reports with documentation of one or more dose reduction techniques (e.g., Au tomated exposure control, adjustment of the mA and/or kV according to patient size, use of iterative reconstruction technique) 2010 [employer]- All Rights Reserved Reading location - IP/workstation name: [email or web address]
== END ==
LOC: RAD 13:07
PROVIDERS: ATTEND Otolaryngology
DX: E04.1 Nontoxic single thyroid nodule (principal)
CPT/HCPCS: 70491; 82565

== ENCOUNTER → 2018-10-28 | Outpatient (CLI) | payer MEDICARE ==
--- NOTE | 2018-10-29 10:09 | RADIOLOGY REPORT (SQ) ---
EXAM DESCRIPTION: MRI THORACIC SPINE WITHOUT COMPLETED DATE/TIME: 10/28/2018 8:48 pm REASON FOR STUDY: S32.009S UNSPECIFIED FRACTURE OF UNSPECIFIED LUMBAR VERTEBRA, SEQUELA S32.009S UN SPECIFIED FRACTURE OF UNSPECIFIED LUMBAR VERTEBRA M51.36 OTHER INTERVERTEBRAL DISC DEGENERATION, LUM BAR REGION COMPARISON: 03/10/2013 TECHNIQUE: Sagittal and Axial imaging includes T1, T2, STIR and gradient echo sequences. LIMITATIONS: Motion. FINDINGS: LOCALIZER: No worrisome findings. ALIGNMENT: Exaggerated kyphosis, stable. VERTEBRAE: Chronic compression fractures T12 and L1 status post kyphoplasty at L1. BONE MARROW: Normal. No marrow replacement or reactive changes. HARDWARE: None in the spine. CORD: Normal in size and signal intensity. SOFT TISSUES: No soft tissue masses. THORACIC DISCS T1-T12: Minimal narrowing of the spinal canal T5- 6 due to disc bulge. Stable mild re tropulsion superior endplate T12. IMPRESSION: Chronic compression fractures and degenerative change. No acute findings. TECHNICAL DOCUMENTATION: JOB ID: [id number] [employer]- All Rights Reserved Reading location - IP/workstation name: [email or web address]
--- NOTE | 2018-10-29 10:21 | RADIOLOGY REPORT (SQ) ---
EXAM DESCRIPTION: MRI LUMBAR SPINE WITHOUT COMPLETED DATE/TIME: 10/28/2018 8:48 pm REASON FOR STUDY: M51.36 OTHER INTERVERTEBRAL DISC DEGENERATION, LUMBAR REGION S32.009S UNSPECIFIED FRACTURE OF UNSPECIFIED LUMBAR VERTEBRA M51.36 OTHER INTERVERTEBRAL DISC DEGENERATION, LUMBAR REGIO N COMPARISON: 07/10/2017 TECHNIQUE: Sagittal and Axial imaging includes T1, T2, STIR and gradient echo sequences. Coronal T2/ HASTE imaging. LIMITATIONS: Motion. FINDINGS: VISUALIZED UPPER ABDOMEN: 3.5 cm infrarenal aortic aneurysm, not significantly changed. SEGMENTATION: No transitional anatomy. The lowest well-developed disc space is labeled L5-S1. ALIGNMENT: Anatomic. VERTEBRAE: Chronic compression fracture L1 status post kyphoplasty. Compression fracture inferior en dplate L2 with associated edema. No significant retropulsion. BONE MARROW: See above. DISC SIGNAL: Desiccation multiple levels. POSTERIOR ELEMENTS: Generally intact. No pars defect evident. HARDWARE: None in the spine. CORD AND CONUS: Normal in size and signal intensity. Conus at the appropriate level. SOFT TISSUES: See above. L1-L2: Minimal narrowing of the spinal canal due to disc bulge. L2-L3: Mild spinal stenosis due to disc bulge and facet arthropathy. L3-L4: Minimal spinal canal due to disc bulge and facet arthropathy. L4-L5: Mild spinal stenosis due to disc bulge and facet arthropathy. L5-S1: Disc bulge and facet arthropathy. No significant spinal stenosis. Mild neural foraminal narr owing bilaterally. LOWER THORACIC: See separate report of the same date. SACRUM: Visualized upper sacrum intact. OTHER: No other significant findings. IMPRESSION: Recent compression fracture inferior endplate L 2. No significant retropulsion. TECHNICAL DOCUMENTATION: JOB ID: [id number] [employer]- All Rights Reserved Reading location - IP/workstation name: [email or web address]
== END ==
LOC: RAD 19:19
PROVIDERS: ATTEND Physician Assistant
DX: M51.36 Other intervertebral disc degeneration, lumbar region (principal)
CPT/HCPCS: 72146; 72148

== ENCOUNTER → 2020-02-23 | Outpatient (CLI) | payer MEDICARE ==
--- NOTE | 2020-02-23 11:17 | ER [facility] ASSESSMENT REPORT ---
Intake - In the Last 14 days Have you traveled outside [place]?: Yes --City/State: [place] Have you been in close contact with someone CONFIRMED: Yes Worked in Healthcare?: No - Symptoms Subjective Fever([place] feverish): No Chills: No Muscule Aches: No Runny Nose: Yes Sore Throat: Yes Cough (New or worsening chronic cough): Yes Shortness of breath: No Nausea or Vomiting: No Headache: Yes Abdominal Pain: No Diarrhea(3 or more loose stools in last 24 hours): Yes - Do you have any of the following Chronic lung disease: Asthma or emphysema or COPD: Yes Cystic Fibrosis: No Diabetes: No High Blood Pressure: Yes Cardiovascular Disease: Yes Chronic Kidney Disease: No Chronic Liver Disease: No Chronic blood disorder like Sickle Cell Disease: No Weak immune system due to disease or medication: No Neurologic condition that limits movement: No Developmental delay - Moderate to Severe: No Recent (within past 2 weeks) or current : No Morbid Obesity (>100 pounds over ideal weight): No - Objective Temperature: 98.1 F Pulse Rate: 66 Respiratory Rate: 18 Blood Pressure: 143/66 O2 Sat by Pulse Oximetry: 95 Objective: Given above, testing performed: flu strep covid Disposition: Home; Selfcare General - General Stated Complaint: flulike symptoms Mode of Arrival: Ambulatory Information source: Patient - HPI Notes: 64-year-old female presents [facility] clinic for COVID-19 testing. Patient does report exposure to neighbor that has tested positive for COVID-19. Onset of symptoms 02/18/2020. Patient is reporting runny nose, sore throat, cough, headache, congestion, and several episodes of diarrhea. Denies any fever or chills, muscle aches, shortness of breath, nausea or vomiting, or abdominal pain. No changes in taste or smell. - Related Data Allergies/Adverse Reactions: Penicillins Allergy (Severe, Verified 09/25/17 10:38) throat closes morphine [Morphine] Adverse Reaction (Severe, Verified 09/25/17 10:38) migraine, n/v diphenhydramine HCl [From Benadryl] Adverse Reaction (Intermediate, Verified 09/25/17 10:38) bladder spasm Oacvnod-Weo-Qsf Reductase Inhibitor Adverse Reaction (Intermediate, Verified 09/25/17 10:38) muscle cramps Past Medical History - General Information source: Patient - Social History Smoking Status: Current Every Day Smoker Cigarette use (# per day): Yes - 10 Family History: Reviewed & Not Pertinent - Past Medical History Cardiac Medical History: Reports: Hx Atrial Fibrillation, Hx Hypertension Denies: Hx Coronary Artery Disease, Hx Heart Attack Pulmonary Medical History: Reports: Hx Asthma Denies: Hx Bronchitis, Hx COPD, Hx Pneumonia EENT Medical History: Reports: None Neurological Medical History: Reports: None. Denies: Hx Cerebrovascular Accident, Hx Seizures Endocrine Medical History: Reports: None Renal/ Medical History: Reports: None. Denies: Hx Peritoneal Dialysis Malignancy Medical History: Reports: None GI Medical History: Reports: Hx Irritable Bowel Musculoskeletal Medical History: Reports Hx Arthritis - Osteo , Reports Hx Fibro myalgia Skin Medical History: Reports None Psychiatric Medical History: Reports: Hx Depression Traumatic Medical History: Reports: None Infectious Medical History: Reports: None Past Surgical History: Reports: Hx Breast Surgery - lumpectomy, Hx Hysterectomy Physical Exam - General General appearance: Appears well, Alert In distress: None Notes: PHYSICAL EXAMINATION: GENERAL: Well-appearing and in no acute distress. HEAD: Atraumatic, normocephalic. EYES: sclera anicteric, conjunctiva are normal. ENT: nares patent. Moist mucous membranes. NECK: Normal range of motion, supple without lymphadenopathy. LUNGS: No increased work of breathing. Lung sounds CTAB and equal. No wheezes rales or rhonchi. HEART: Regular rate and rhythm without murmurs. ABDOMEN: Soft, nontender, normal bowel sounds, no guarding. EXTREMITIES: Normal range of motion, no pitting edema. No cyanosis. NEUROLOGICAL: A&O x 3. Normal speech. PSYCH: Normal mood, normal affect. SKIN: Warm, Dry, normal turgor, no rashes or lesions noted Patient Education/Counseling Counseling/Education: Patient presents with symptoms associated with possible Covid 19 infection. Patient does not have emergency worrying symptoms such as difficulty breathing, shortness of breath, chest pain, pressure, confusion or cyanosis. Patient appears suitable for discharge as vital signs are stable and patient is nontoxic in appearance. Good return precautions have been discussed with patient, patient verbalized understanding and is agreeable with discharge plan of care at this time. Guidance for worsening S/SX: As a person under investigation for Covid 19, the [place] department of Health and Human Services, division of public health advises you to adhere to the following guidance until your test results are reported to you. If your test result is positive, you will receive additional information from your provider and your local health department at that time. Remain at home until you are cleared by the health provider or public health authorities. Keep a log of visitors to your home, notify any visitors to your home of your isolation status. If you plan to move to a new address or leave the county, notify the local health department in your County. Call your doctor or seek care if you have an urgent medical need. Before seeking medical care, call ahead to get instructions from the provider before arriving at the medical office clinic or hospital. Notify them that you are being tested for the virus that causes Covid 19 so that arrangements can be made, as necessary, to prevent transmission to others in the healthcare setting. Next, notify the local health department in your county. If a medical emergency arises and you need to call 911, inform the first responders that you are being tested for the virus that causes Covid 19. Next, notify the local health department in your county. [facility] Discharge - Discharge Clinical Impression: Encounter for screening laboratory testing for COVID-19 virus Upper respiratory infection Qualifiers: URI type: unspecified URI Qualified Code(s): J06.9 - Acute upper respiratory infection, unspecified Condition: Good Disposition: Home; Selfcare
[2020-02-23 11:32] LABS: A TYPE INFLUENZA AG NEGATIVE (NEGATIVE); B INFLUENZA AG NEGATIVE (NEGATIVE)
[2020-02-23 12:16] VITALS: BP 143/66
== END ==
LOC: RDC 10:12
PROVIDERS: ATTEND Registered Nurse
DX: J06.9 Acute upper respiratory infection, unspecified (principal); Z20.828 Contact with and (suspected) exposure to other viral communicable diseases; R05 Cough; R09.89 Other specified symptoms and signs involving the circulatory and respiratory systems; J02.9 Acute pharyngitis, unspecified; R51.9 Headache, unspecified; R19.7 Diarrhea, unspecified; I10 Essential (primary) hypertension; F17.210 Nicotine dependence, cigarettes, uncomplicated; Z88.0 Allergy status to penicillin; Z88.6 Allergy status to analgesic agent; Z88.8 Allergy status to other drugs, medicaments and biological substances
CPT/HCPCS: 87070; 87880; 87804; U0003; C9803; 87635; 99201; 99211